=== PATIENT | female | born 1965 | race Caucasian/White ===

== ENCOUNTER 2016-06-03 17:22 | Emergency (ER) | payer OTHER ==
[~2016-06-03] VITALS: Ht 160 cm; Wt 94.3 kg
[~2016-06-03 17:22] MED LIST: 'PARAFON FORTE500 M1 PO; ACETAMINOPHEN-H1 TA2 PO; ASPIRIN CHEWABL81 M1 PO; AUGMENTIN 875875 MG PO; CIPRO500 MG PO; CLARITIN10 MG PO; CYCLOBENZAPRINE10 MG PO; DIFLUCAN150 MG PO; FENOFIBRIC ACI135 M1 PO; FLONASE ALLERG9.9 ML NAS; HYDR25T PO; HYDROCODONE BIT1 T11 PO; LEVOTHYROXINE0.15 MG PO; LEXAPRO20 MG PO; LISINOPRIL10 M1 PO; LISINOPRIL40 MG PO; LOPID600 M1 PO; MACROBID100 M1 PO; MEDROL DOSEPAK4 MG PO; METFORMIN HCL500 MG PO; METFORMIN500 MG PO; METOPROLOL SUCC25 M2 PO; MOTRIN800 MG PO; NEURONTIN100 MG PO; OS-CAL 500+D31 EACH PO; PEN-VEE K500 MG PO; PRAVASTATIN SOD40 MG PO; PREDNISONE10 MG PO; PREDNISONE20 M1 PO; PREDNISONE50 MG PO; PROVENTIL0.09 MG/A1 INH; ROBITUSSIN DM 105 ML PO; ROBITUSSIN5 ML PO; SEROQUEL50 MG PO; SYNTHROID0.125 MG PO; Synthroid,Lev100 MCG PO; ULTRAM50 MG PO; VENTOLIN H0.09 MG/AC INH; VIBRAMYCIN100 MG PO; ZESTRIL,PRINIVIL5 MG PO; ZESTRIL10 MG PO; ZESTRIL20 MG PO; ZITHROMAX250 MG PO; ZYRTEC10 MG PO
[2016-06-03] MEDS ORDERED: ZYRTEC10 MG PO (17:44)
[2016-06-03] MEDS ORDERED: AMOXICILLIN500 M2 PO (17:44)
== END 2016-06-03 17:49 | disposition home or self-care (01) ==
LOC: ED 17:22
DX: H66.91 Otitis media, unspecified, right ear (principal); J01.90 Acute sinusitis, unspecified; Z87.891 Personal history of nicotine dependence; Z88.1 Allergy status to other antibiotic agents; Z88.6 Allergy status to analgesic agent; Z90.49 Acquired absence of other specified parts of digestive tract

== ENCOUNTER 2016-06-24 17:03 | Emergency (ER) | payer OTHER ==
[~2016-06-24] VITALS: Ht 157.4 cm; Wt 99.8 kg
[~2016-06-24 17:03] MED LIST changes: +AMOXICILLIN500 M2 PO
[2016-06-24 17:41] LABS: BASO # 0.1 10*3/uL (0.0-0.1); BASO % 0.5 % (0.0-1.0); EOS # 0.3 10*3/uL (0.0-0.4); EOS % 2.9 % (1.0-4.0); HEMATOCRIT 38.7 % (37.0-47.0); HEMOGLOBIN 12.8 g/dl (12.0-16.0); IG # 0.1 10*3/uL (0.0-0.1); LYMPH # 3.2 10*3/uL (1.3-4.4); MEAN CELL VOLUME 81.6 fl (81.0-99.0); MEAN CORPUSCULAR HGB CONC 33.1 g/dl (33.0-37.0); MEAN PLATELET VOLUME 11.5 fl (9.6-12.3); MONO # 0.7 10*3/uL (0.1-1.0); MONO % 7.3 % (3.0-9.0); NEUT # 5.7 10*3/uL (2.3-7.9); NEUT % 56.1 % (47.0-73.0); PLATELET COUNT AUTOMATED 266 10*3/uL (130-400); RED BLOOD COUNT 4.74 10*6/uL (4.10-5.10); WHITE BLOOD COUNT 10.1 10*3/uL (4.8-10.8)
[2016-06-24 17:55] LABS: ALBUMIN 3.9 gm/dl (3.1-4.5); ALKALINE PHOSPHATASE 124 U/L (45-117); BILIRUBIN, TOTAL 0.5 mg/dl (0.2-1.0); BUN 15 mg/dl (7-24); CARBON DIOXIDE 30 mmol/L (21-32); CHLORIDE 104 mmol/L (98-107); EST GLOM FILT AFRICAN AMERICAN > 60 ml/min; GLUCOSE 201 mg/dL (65-99); SGOT/AST 22 IU/L (3-35); SGPT/ALT 34 U/L (12-78); SODIUM 144 mmol/L (136-145); TOTAL PROTEIN 7.4 gm/dL (6.4-8.2); URIC ACID 8.3 mg/dL (2.6-6.0)
[2016-06-24] MEDS ORDERED: INDOMETHACIN SR75 MG PO (18:31)
== END 2016-06-24 18:42 | disposition home or self-care (01) ==
LOC: ED 17:03
PROVIDERS: Emergency Medicine
DX: M13.872 Other specified arthritis, left ankle and foot (principal); J44.9 Chronic obstructive pulmonary disease, unspecified; F32.9 Major depressive disorder, single episode, unspecified; E11.40 Type 2 diabetes mellitus with diabetic neuropathy, unspecified; I10 Essential (primary) hypertension; K21.9 Gastro-esophageal reflux disease without esophagitis; E03.9 Hypothyroidism, unspecified; E78.2 Mixed hyperlipidemia; E66.9 Obesity, unspecified; Z68.39 Body mass index [BMI] 39.0-39.9, adult; Z90.710 Acquired absence of both cervix and uterus; Z90.49 Acquired absence of other specified parts of digestive tract; Z98.51 Tubal ligation status; Z79.899 Other long term (current) drug therapy; Z88.1 Allergy status to other antibiotic agents; Z88.5 Allergy status to narcotic agent; Z87.891 Personal history of nicotine dependence

== ENCOUNTER 2016-07-06 21:16 | Inpatient (IN) | payer OTHER ==
[~2016-07-06] VITALS: Ht 157.4 cm; Wt 94.1 kg
--- NOTE | ~2016-07-06 | WRIGHTHP ---
[place], [place] PATIENT HISTORY AND PHYSICAL EXAM NAME: TEREZA OROPEZA [facility] #: [id number] UNIT #: [id number] ROOM: 412 DOCTOR: BO LUNDY DO BIRTHDATE: [birth year] DOS: PRIMARY CARE PHYSICIAN: Dr. Sammi Ruff. The patient was seen and evaluated with the resident on 07/07/2016. Please see the resident's note for further details. ASSESSMENT: 1. Chest pain, rule out myocardial infarction. 2. Palpitations. 3. Mild leukocytosis. 4. Uncontrolled hypothyroidism, most likely secondary to noncompliance. 5. Diabetes mellitus type 2. 6. Hypertension. 7. Hyperlipidemia. 8. Chronic obstructive pulmonary disease. 9. Ex-smoker. She quit in December 2015. 10. Gastroesophageal reflux disease. 11. Depression. 12. 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 13. Negative cardiac stress test in January 2016. 14. Echocardiogram in September 2015 measured a normal ejection fraction. PLAN: Continue to monitor cardiac enzymes. Cardiology has been consulted. We will continue her at her normal dose of Synthroid since she is most likely not controlled because of noncompliance. Possible discharge today if okay with cardiology. A CTA of the chest has been ordered to rule out PE. BO LUNDY DO CM:HISPHYS:PATIENT HISTORY AND PHYSICAL EXAMINATION 1611 [id number] BO LUNDY DO 07/07/16 1637 interface
--- NOTE | ~2016-07-06 | PR ---
[place], [place] PROGRESS NOTE NAME: TEREZA OROPEZA [facility] #: [id number] UNIT #: [id number] ROOM: 412 DOCTOR: ANDREW BLAKE MD BIRTHDATE: [birth year] DOS: 07/09/2016 CARDIOLOGY PROGRESS NOTE SUBJECTIVE: The patient was seen in the cardiology division today, 07/09/2016 prior to a stress test. She is a 50-year-old woman who does have a history of an atrial septal defect that was repaired over 20 years ago. She has smoked up until about 8 months ago. She does have other risk factors of diabetes, hypertension, and hyperlipidemia. She states she has had intermittent pains in her chest for "quite a while," but they got worse recently, especially during an argument. She does note that her left breast area is tender to touch, but she states that her pains are deeper than that as well. Since she has been in the hospital, she feels a little bit better, but still has some of the chest discomfort. Cardiac biomarkers have been negative for an acute myocardial infarction. OBJECTIVE: VITAL SIGNS: Her pulse is 75 and regular, blood pressure is 144/86. She is afebrile. She weighs 94.1 kg and has a body mass index of 38. NECK: Supple. She has no jugular distention. Carotids are full. LUNGS: Respirations are unlabored. CHEST: Clear with decreased breath sounds bilaterally, but no wheezes or rales. Her heart has irregular rhythm. She has a fourth heart sound, but no third heart sound or murmur. The PMI is not displaced. She has no precordial heave, lift, or thrill. ABDOMEN: Soft and normally active without masses, organomegaly, or bruits. EXTREMITIES: Showed no edema. Peripheral pulses were palpable. DIAGNOSTIC DATA: Her electrocardiogram shows no acute changes. IMPRESSION: 1. Atypical chest pain. 2. History of repair of atrial septal defect. 3. Type 2 diabetes mellitus. 4. Hypertension. 5. Hyperlipidemia. 6. Obesity. 7. Long history of tobacco abuse. The patient abstinent for 8 months. PLAN: Thus far, her evaluation has been benign from a cardiac standpoint. We will do an echocardiogram and pharmacologic stress test. Further recommendations depend upon the results of those examinations. ____ and I thank the hospitalist group for asking our advice regarding the management of this patient. [place], [place] PROGRESS NOTE NAME: TEREZA OROPEZA UNIT #: [id number] ROOM: 412 DOCTOR: ANDREW BLAKE MD BIRTHDATE: [birth year] ANDREW BLAKE MD CM:PNTRANS [id number] [id number] ANDREW BLAKE MD 07/10/16 0633 interface
--- NOTE | ~2016-07-06 | ST ---
[place], [place] EXERCISE STRESS TEST REPORT NAME: TEREZA OROPEZA [facility] #: [id number] UNIT #: [id number] ROOM: 412 DOCTOR: ANDREW BLAKE MD BIRTHDATE: [birth year] DOS: 07/09/2016 PHARMACOLOGIC STRESS TEST INDICATIONS: Chest pain, dyspnea. PROCEDURE: The patient was given a rapid infusion of regadenoson 0.4 mg intravenously followed by a saline flush. She did have some headache and some dyspnea with the infusion but all this resolved spontaneously. Her resting electrocardiogram showed a rightward axis, but was otherwise normal. She also had left atrial enlargement. No ST-T wave changes occurred with the infusion. Her resting heart rate is 75 ludwig to 95, her resting blood pressure of 104/62 fell to 100/60. After the infusion of regadenoson, she was given radionuclide intravenously. IMPRESSION: 1. Well tolerated infusion of regadenoson. 2. Radionuclide administered. Please see the separate imaging report for further details of the patient's stress test results. ANDREW BLAKE MD CM:STRESS:EXERCISE STRESS TEST REPORT [id number] ANDREW BLAKE MD
--- NOTE | ~2016-07-06 | PR ---
[place], [place] PROGRESS NOTE [id number] #: [id number] ROOM: 412 DOCTOR: ANDREW BLAKE MD BIRTHDATE: [birth year] DOS: 07/10/2016 SUBJECTIVE: The patient was seen at her bedside, 07/10/2016, for followup of chest pain with multiple coronary risk factors. On 07/09/2016, she did undergo a pharmacologic stress test. This showed a moderate sized distal anteroapical reversible defect, but no fixed defect was seen. The study was consistent with mid LAD stenosis. Review of the records does show that she had a similar stress test in September 2015. This prompted catheterization at the [facility] on 09/07/2015. The study showed no coronary stenosis. PHYSICAL EXAMINATION: VITAL SIGNS: Today, her pulse is 80 and regular, blood pressure is 128/70. She is afebrile. She weighs 94.1 kilograms. NECK: Supple. She has no jugular distention. Carotids are full. LUNGS: Respirations are unlabored. Chest is clear to auscultation and percussion. HEART: Has a regular rhythm with an S4 gallop, but no S3. She does have chest wall tenderness. ABDOMEN: Soft and normoactive. EXTREMITIES: Showed no edema. LABORATORY DATA: Her electrocardiogram on admission showed no acute changes and serial troponin levels have been normal. IMPRESSION: 1. Noncardiac chest pain. Cardiac catheterization done 09/07/2015 showed normal left ventricular function and no coronary stenoses. 2. Multiple coronary risk factors including obesity, diabetes mellitus, hypertension, hyperlipidemia and former cigarette abuse. The patient stopped smoking 8 months ago. PLAN: I think we should be very aggressive about her risk factor modification. I did add beta blockers to her regimen to help treat her high blood pressure. She will require tight control of her diabetes and hyperlipidemia and encouragement to stay abstinent of cigarettes. From our perspective, she can be discharged to home and we will follow up with her in the office as needed. I thank the hospitalist physicians for asking our advice regarding her care. [place], [place] PROGRESS NOTE [facility]: [id number] UNIT #: [id number] ROOM: 412 DOCTOR: ANDREW BLAKE MD BIRTHDATE: [birth year] ANDREW BLAKE MD CM:PNHOLLY 2 ANDREW BLAKE MD 07/11/16223 interface
--- NOTE | ~2016-07-06 | CON ---
[place], [place] REPORT OF CONSULTATION NAME: TEREZA OROPEZA [facility] #: [id number] UNIT #: [id number] ROOM: 412 DOCTOR: THERESE DASZAIDAEVELYN BIRTHDATE: [birth year] DOS: REQUESTING PHYSICIAN: Dr. Beasley. REASON FOR CONSULTATION: Chest pain. ASSESSMENT: 1. Current presentation with chest pain, left-sided, for the past 2-3 days. 2. Diabetes. 3. Hypertension. 4. Hyperlipidemia. 5. Obesity with high probability of obstructive sleep apnea. 6. Long history of heavy tobacco abuse. The patient quit 8 months ago. 7. Previous history of large atrial septal defect with subsequent surgery for closure. PLAN: 1. Cycle cardiac enzymes. 2. Keep patient n.p.o. for a stress test in the a.m. 3. Check echo with a bubble study in the a.m. 4. Vital signs does not allow any advancement of her medication. 5. Consider CT scan of the chest in view of the significant reproducible nature of her chest pain. HISTORY AND PHYSICAL: The patient is a pleasant 50-year-old female unknown to our practice, was referred by Dr. Beasley for further evaluation of complaint of chest pain that apparently has been going for the past 2 to 3 days. Pain is left-sided, dull, aching, but it is reproducible with local pressure, it does though occasionally radiates to the left arm shoulder and again tingling in her fingers. This can last almost 20-30 minutes. Its goes back and forth mostly rest and it can reach 9/10. No associated nausea, vomiting, or diaphoresis, but again it does radiate to the left arm and cause tingling. The patient did not try to take any medicine for that presented to the hospital for now so far, along with that she was having some fluttering and racing of the heart also, some skipped beats. The patient never had such complaint before. She does not follow regular exercise program, but active, still drive and goes shopping. Sleeps on 2 pillows, which is her baseline with no reported PND, orthopnea or pedal edema. Never had any dizziness, lightheadedness, or near syncope. No fever, no chills, no night sweats. Maintaining good appetite with no significant weight change. PAST MEDICAL HISTORY: As detailed in my assessment. SOCIAL HISTORY: The patient quit smoking 8 months ago. Currently, she chewing gum about 2-3 packs a day. No heavy alcohol or illicit drug abuse. FAMILY HISTORY: The patient's mother is still alive at age 72. Her father at age 57 of unknown cause. She has 1 brother and 2 sisters with no reported early family history of heart disease. [place], [place] REPORT OF CONSULTATION NAME: TEREZA OROPEZA UNIT #: [id number] ROOM: [facility] DOCTOR: COREY SALEH MD BIRTHDATE: [birth year] CURRENT MEDICATIONS: Seroquel, Optiray, lisinopril, Lopid, Lovenox, Glucophage, Protonix, Synthroid, Restoril, Zofran, bisacodyl, Tylenol and Dulcolax. ALLERGIES: THE PATIENT IS ALLERGIC TO MORPHINE, ERYTHROMYCIN. REVIEW OF SYSTEMS: Currently, the patient denies any headache, diplopia, or blurry vision. She has significant double vision. No fever, no chills, no night sweats. No abdominal pain, no bright red blood per rectum, no tarry stools. Admit to occasional joint pain, but no muscular pain. No anxiety, no depression. No polyuria, no polydipsia, no skin rash. Review of all other systems has been negative. PHYSICAL EXAMINATION: GENERAL: The patient is alert, oriented x 3, quite pleasant. She is flat in bed, does not appear in distress. VITAL SIGNS: Blood pressure 114/62, heart rate 64, respiratory rate of 14, temperature 97.4. HEENT: Extraocular muscles intact. Pupils are equal, round, reactive to light. Conjunctivae: No pallor. Throat: No petechiae. NECK: Good upstroke. Unable to appreciate any bruit, no lymphadenopathy, no thyromegaly. HEART: S1, S2 with holosystolic murmur at the left sternal border. No rub. No sternal heave. CHEST AND BACK: No deformities. LUNGS: Clear to auscultation. Slight decrease in air movement. No wheezing, no rales. ABDOMEN: Morbidly obese, soft, nontender, present bowel sounds, no masses, no bruits. LOWER EXTREMITIES: There is mild ankle edema with faint distal pulses. NEUROLOGIC: Grossly nonfocal. SKIN: No significant rash. LABORATORY DATA: White count 10.4, hemoglobin 12.4. INR 0.9. CPK 68, MB is 0.6. Troponin less than 0.015. COREY SALEH MD CM:CONSTR:REPORT OF CONSULTATION 1104 07/08/16 1804 interface
[~2016-07-06 21:16] MED LIST changes: +INDOMETHACIN SR75 MG PO
[2016-07-06 21:24] VITALS: BP 183/74
[2016-07-06 21:48] LABS: BASO # 0.1 10*3/uL (0.0-0.1); BASO % 0.4 % (0.0-1.0); EOS # 0.3 10*3/uL (0.0-0.4); EOS % 2.4 % (1.0-4.0); HEMATOCRIT 37.9 % (37.0-47.0); HEMOGLOBIN 12.8 g/dl (12.0-16.0); IG # 0.1 10*3/uL (0.0-0.1); LYMPH # 3.9 10*3/uL (1.3-4.4); LYMPH % 32.7 % (27.0-41.0); MEAN CELL VOLUME 80.8 fl (81.0-99.0); MEAN CORPUSCULAR HGB 27.3 pg (27.0-31.0); MEAN CORPUSCULAR HGB CONC 33.8 g/dl (33.0-37.0); MEAN PLATELET VOLUME 12.1 fl (9.6-12.3); MONO # 0.7 10*3/uL (0.1-1.0); MONO % 6.3 % (3.0-9.0); NEUT # 6.8 10*3/uL (2.3-7.9); NEUT % 57.4 % (47.0-73.0); PLATELET COUNT AUTOMATED 255 10*3/uL (130-400); RED BLOOD COUNT 4.69 10*6/uL (4.10-5.10); RED CELL DISTRI WIDTH 14.2 % (0-14.5); WHITE BLOOD COUNT 11.8 10*3/uL (4.8-10.8)
[2016-07-06 21:58] LABS: INTERNATIONAL NORM RATIO 0.9 (2.0-3.5)
[2016-07-06 22:12] LABS: ALBUMIN 3.8 gm/dl (3.1-4.5); ALKALINE PHOSPHATASE 128 U/L (45-117); BILIRUBIN, TOTAL 0.4 mg/dl (0.2-1.0); BUN 17 mg/dl (7-24); CARBON DIOXIDE 25 mmol/L (21-32); CHLORIDE 105 mmol/L (98-107); EST GLOM FILT AFRICAN AMERICAN > 60 ml/min; GLUCOSE 148 mg/dL (65-99); MAGNESIUM 1.6 mg/dL (1.5-2.1); SGOT/AST 17 IU/L (3-35); SGPT/ALT 42 U/L (12-78); SODIUM 139 mmol/L (136-145); TOTAL PROTEIN 7.4 gm/dL (6.4-8.2)
[2016-07-06 22:28] LABS: TROPONIN I < 0.015 ng/ml (<0.045)
[2016-07-06 23:32] VITALS: BP 127/75
[2016-07-07] VITALS: BP 149/50
[2016-07-07 06:27] LABS: BASO # 0.1 10*3/uL (0.0-0.1); BASO % 0.6 % (0.0-1.0); EOS # 0.3 10*3/uL (0.0-0.4); EOS % 3.1 % (1.0-4.0); HEMATOCRIT 37.1 % (37.0-47.0); HEMOGLOBIN 12.4 g/dl (12.0-16.0); IG # 0.1 10*3/uL (0.0-0.1); LYMPH # 3.4 10*3/uL (1.3-4.4); MEAN CELL VOLUME 82.1 fl (81.0-99.0); MEAN CORPUSCULAR HGB 27.4 pg (27.0-31.0); MEAN CORPUSCULAR HGB CONC 33.4 g/dl (33.0-37.0); MONO # 0.7 10*3/uL (0.1-1.0); MONO % 6.7 % (3.0-9.0); NEUT # 5.9 10*3/uL (2.3-7.9); PLATELET COUNT AUTOMATED 239 10*3/uL (130-400); RED BLOOD COUNT 4.52 10*6/uL (4.10-5.10); RED CELL DISTRI WIDTH 14.3 % (0-14.5); WHITE BLOOD COUNT 10.4 10*3/uL (4.8-10.8)
[2016-07-07 06:39] LABS: CKMB 0.7 ng/ml (0.5-3.6); CPK 60 U/L (26-192)
[2016-07-07 06:46] LABS: TROPONIN I < 0.015 ng/ml (<0.045)
[2016-07-07 06:55] LABS: BUN 16 mg/dl (7-24); CARBON DIOXIDE 26 mmol/L (21-32); CHLORIDE 106 mmol/L (98-107); CHOLESTEROL 156 mg/dL (<200); EST GLOM FILT AFRICAN AMERICAN > 60 ml/min; GLUCOSE 159 mg/dL (65-99); HDL CHOLESTEROL 28 mg/dl (40-60); MAGNESIUM 1.9 mg/dL (1.5-2.1); PHOSPHOROUS 4.4 mg/dL (2.5-4.9); POTASSIUM 4.3 mmol/L (3.5-5.1); SODIUM 143 mmol/L (136-145); TRIGLYCERIDES 517 mg/dl (<150)
[2016-07-07 07:03] LABS: FREE T4 0.75 ng/dl (0.76-1.46)
[2016-07-07 07:04] LABS: HEMOGLOBIN A1c 7.2 % (4.8-5.6)
[2016-07-07 08:00] VITALS: BP 150/87
[2016-07-07 12:20] LABS: CKMB 0.7 ng/ml (0.5-3.6); CPK 62 U/L (26-192); TROPONIN I < 0.015 ng/ml (<0.045)
[2016-07-07 16:00] VITALS: BP 146/86
[2016-07-07 18:15] LABS: CKMB 0.6 ng/ml (0.5-3.6); CPK 68 U/L (26-192)
[2016-07-07 18:16] LABS: TROPONIN I < 0.015 ng/ml (<0.045)
[2016-07-07 20:00] VITALS: BP 133/72
[2016-07-08] VITALS: BP 112/57
[2016-07-08 08:00] VITALS: BP 114/62
[2016-07-08 12:00] VITALS: BP 101/54
[2016-07-08 16:00] VITALS: BP 94/50
[2016-07-08 20:00] VITALS: BP 108/67
[2016-07-09] VITALS: BP 111/49
[2016-07-09 08:00] VITALS: BP 144/86
[2016-07-09 16:00] VITALS: BP 115/64
[2016-07-09 20:00] VITALS: BP 134/78
[2016-07-10] VITALS: BP 105/46
[2016-07-10 07:34] LABS: BASO # 0.1 10*3/uL (0.0-0.1); BASO % 0.6 % (0.0-1.0); EOS # 0.3 10*3/uL (0.0-0.4); EOS % 2.8 % (1.0-4.0); HEMATOCRIT 37.2 % (37.0-47.0); HEMOGLOBIN 12.2 g/dl (12.0-16.0); IG # 0.1 10*3/uL (0.0-0.1); LYMPH # 3.3 10*3/uL (1.3-4.4); LYMPH % 36.1 % (27.0-41.0); MEAN CELL VOLUME 83.4 fl (81.0-99.0); MEAN CORPUSCULAR HGB 27.4 pg (27.0-31.0); MEAN CORPUSCULAR HGB CONC 32.8 g/dl (33.0-37.0); MEAN PLATELET VOLUME 11.9 fl (9.6-12.3); MONO # 0.8 10*3/uL (0.1-1.0); MONO % 8.3 % (3.0-9.0); NEUT # 4.6 10*3/uL (2.3-7.9); NEUT % 50.9 % (47.0-73.0); PLATELET COUNT AUTOMATED 256 10*3/uL (130-400); RED BLOOD COUNT 4.46 10*6/uL (4.10-5.10); RED CELL DISTRI WIDTH 14.5 % (0-14.5); WHITE BLOOD COUNT 9.1 10*3/uL (4.8-10.8)
[2016-07-10 07:36] LABS: EST GLOM FILT AFRICAN AMERICAN > 60 ml/min
[2016-07-10 08:00] VITALS: BP 128/70
[2016-07-10 12:00] VITALS: BP 149/70
[2016-07-10] MEDS ORDERED: D-1000 185 MG-11 TAB PO (13:54)
[2016-07-10] MEDS ORDERED: METOPROLOL SUCC25 M2 PO (13:54)
== END 2016-07-10 16:12 | disposition home or self-care (01) | DRG 880 ==
LOC: ED 21:16 → EDHOLD 23:04 → 4E 23:04
PROVIDERS: Emergency Medicine; Student in an Organized Health Care Education/Training Program
PROC: 4A02XM4 Measurement of Cardiac Total Activity, External Approach (ICD-10-PCS; principal; 2016-07-09)
PROC: 3E073KZ Introduction of Other Diagnostic Substance into Coronary Artery, Percutaneous Approach (ICD-10-PCS; 2016-07-09)
DX: F41.9 Anxiety disorder, unspecified (principal); I50.32 Chronic diastolic (congestive) heart failure; E11.40 Type 2 diabetes mellitus with diabetic neuropathy, unspecified; I11.0 Hypertensive heart disease with heart failure; E11.65 Type 2 diabetes mellitus with hyperglycemia; R00.1 Bradycardia, unspecified; K21.9 Gastro-esophageal reflux disease without esophagitis; J44.9 Chronic obstructive pulmonary disease, unspecified; F32.9 Major depressive disorder, single episode, unspecified; E78.2 Mixed hyperlipidemia; E66.9 Obesity, unspecified; E03.9 Hypothyroidism, unspecified; D72.829 Elevated white blood cell count, unspecified; Z87.891 Personal history of nicotine dependence; Z91.14 Patient's other noncompliance with medication regimen; Z90.49 Acquired absence of other specified parts of digestive tract; Z90.710 Acquired absence of both cervix and uterus; Z98.51 Tubal ligation status; Z83.6 Family history of other diseases of the respiratory system; Z88.1 Allergy status to other antibiotic agents; Z88.6 Allergy status to analgesic agent; Z79.84 Long term (current) use of oral hypoglycemic drugs; Z88.8 Allergy status to other drugs, medicaments and biological substances; Z68.38 Body mass index [BMI] 38.0-38.9, adult; R00.8 Other abnormalities of heart beat

== ENCOUNTER 2016-07-29 19:07 | Inpatient (IN) | payer OTHER ==
[~2016-07-29] VITALS: Ht 157.4 cm; Wt 93.0 kg
[2016-07-29 19:07] VITALS: BP 132/88
[~2016-07-29 19:07] MED LIST changes: +D-1000 185 MG-11 TAB PO
[2016-07-29 19:50] LABS: BASO % 0.3 % (0.0-1.0); EOS # 0.3 10*3/uL (0.0-0.4); EOS % 2.3 % (1.0-4.0); HEMATOCRIT 37.7 % (37.0-47.0); HEMOGLOBIN 12.4 g/dl (12.0-16.0); IG # 0.1 10*3/uL (0.0-0.1); LYMPH # 3.9 10*3/uL (1.3-4.4); LYMPH % 30.6 % (27.0-41.0); MEAN CELL VOLUME 82.9 fl (81.0-99.0); MEAN CORPUSCULAR HGB 27.3 pg (27.0-31.0); MEAN CORPUSCULAR HGB CONC 32.9 g/dl (33.0-37.0); MONO % 7.6 % (3.0-9.0); NEUT # 7.4 10*3/uL (2.3-7.9); NEUT % 58.2 % (47.0-73.0); PLATELET COUNT AUTOMATED 255 10*3/uL (130-400); RED BLOOD COUNT 4.55 10*6/uL (4.10-5.10); RED CELL DISTRI WIDTH 14.5 % (0-14.5); WHITE BLOOD COUNT 12.6 10*3/uL (4.8-10.8)
[2016-07-29 19:54] VITALS: BP 116/76
[2016-07-29 20:03] LABS: INTERNATIONAL NORM RATIO 0.9 (2.0-3.5)
[2016-07-29 20:08] LABS: ALBUMIN 3.7 gm/dl (3.1-4.5); ALKALINE PHOSPHATASE 138 U/L (45-117); BILIRUBIN, TOTAL 0.8 mg/dl (0.2-1.0); BUN 18 mg/dl (7-24); CARBON DIOXIDE 28 mmol/L (21-32); CHLORIDE 101 mmol/L (98-107); EST GLOM FILT AFRICAN AMERICAN > 60 ml/min; GLUCOSE 227 mg/dL (65-99); MAGNESIUM 1.6 mg/dL (1.5-2.1); SGOT/AST 34 IU/L (3-35); SGPT/ALT 39 U/L (12-78); SODIUM 137 mmol/L (136-145); TOTAL PROTEIN 7.3 gm/dL (6.4-8.2)
[2016-07-29 20:09] LABS: TROPONIN I < 0.015 ng/ml (<0.045)
[2016-07-29 21:11] VITALS: BP 106/60
[2016-07-29 22:40] VITALS: BP 142/84
[2016-07-29 23:15] VITALS: BP 110/60; BP 118/82
[2016-07-30 06:42] LABS: BASO % 0.3 % (0.0-1.0); EOS # 0.2 10*3/uL (0.0-0.4); EOS % 2.6 % (1.0-4.0); HEMATOCRIT 36.7 % (37.0-47.0); HEMOGLOBIN 12.1 g/dl (12.0-16.0); IG # 0.1 10*3/uL (0.0-0.1); LYMPH # 3.8 10*3/uL (1.3-4.4); LYMPH % 41.7 % (27.0-41.0); MEAN CELL VOLUME 83.4 fl (81.0-99.0); MEAN CORPUSCULAR HGB 27.5 pg (27.0-31.0); MEAN PLATELET VOLUME 12.1 fl (9.6-12.3); MONO # 0.8 10*3/uL (0.1-1.0); MONO % 8.3 % (3.0-9.0); NEUT # 4.2 10*3/uL (2.3-7.9); NEUT % 46.3 % (47.0-73.0); PLATELET COUNT AUTOMATED 225 10*3/uL (130-400); RED CELL DISTRI WIDTH 14.5 % (0-14.5); WHITE BLOOD COUNT 9.1 10*3/uL (4.8-10.8)
[2016-07-30 07:15] LABS: ALBUMIN 3.4 gm/dl (3.1-4.5); BUN 17 mg/dl (7-24); CARBON DIOXIDE 26 mmol/L (21-32); CHLORIDE 106 mmol/L (98-107); EST GLOM FILT AFRICAN AMERICAN > 60 ml/min; GLUCOSE 197 mg/dL (65-99); MAGNESIUM 1.8 mg/dL (1.5-2.1); POTASSIUM 4.1 mmol/L (3.5-5.1); SODIUM 141 mmol/L (136-145)
[2016-07-30 07:26] LABS: ALKALINE PHOSPHATASE 122 U/L (45-117); BILIRUBIN, TOTAL 0.7 mg/dl (0.2-1.0); FREE T4 0.89 ng/dl (0.76-1.46); SGOT/AST 24 IU/L (3-35); SGPT/ALT 33 U/L (12-78); TOTAL PROTEIN 6.6 gm/dL (6.4-8.2)
[2016-07-30 08:00] VITALS: BP 98/56
[2016-07-30 12:00] VITALS: BP 105/72
[2016-07-30 16:00] VITALS: BP 114/66
[2016-07-30] MEDS ORDERED: LIPITOR10 MG PO (16:55)
[2016-07-30] MEDS ORDERED: FISH OIL EC 1,1 EACH PO (16:55)
== END 2016-07-30 18:29 | disposition home or self-care (01) | DRG 313 ==
LOC: ED 19:07 → EDHOLD 22:15 → 4E 22:41
PROVIDERS: Emergency Medicine Emergency Medical Services; Internal Medicine Hospice and Palliative Medicine
DX: R07.89 Other chest pain (principal); N17.0 Acute kidney failure with tubular necrosis; I50.32 Chronic diastolic (congestive) heart failure; Z68.41 Body mass index [BMI] 40.0-44.9, adult; M54.12 Radiculopathy, cervical region; F32.9 Major depressive disorder, single episode, unspecified; J44.9 Chronic obstructive pulmonary disease, unspecified; K21.9 Gastro-esophageal reflux disease without esophagitis; E03.9 Hypothyroidism, unspecified; E78.2 Mixed hyperlipidemia; D72.829 Elevated white blood cell count, unspecified; E11.65 Type 2 diabetes mellitus with hyperglycemia; E11.42 Type 2 diabetes mellitus with diabetic polyneuropathy; I11.0 Hypertensive heart disease with heart failure; E66.01 Morbid (severe) obesity due to excess calories; E55.9 Vitamin D deficiency, unspecified; B34.9 Viral infection, unspecified; F41.9 Anxiety disorder, unspecified; Z90.710 Acquired absence of both cervix and uterus; Z90.49 Acquired absence of other specified parts of digestive tract; Z98.51 Tubal ligation status; Z87.891 Personal history of nicotine dependence; Z82.5 Family history of asthma and other chronic lower respiratory diseases; Z88.1 Allergy status to other antibiotic agents; Z88.6 Allergy status to analgesic agent; Z79.84 Long term (current) use of oral hypoglycemic drugs; Z79.899 Other long term (current) drug therapy; R00.8 Other abnormalities of heart beat

== ENCOUNTER → 2016-08-07 | Outpatient (CLI) | payer OTHER ==
[~2016-08-07] MED LIST changes: +FISH OIL EC 1,1 EACH PO; +LIPITOR10 MG PO
== END | disposition home or self-care (01) ==
LOC: MAMMO 07-27 13:30
DX: Z12.31 Encounter for screening mammogram for malignant neoplasm of breast (principal)

== ENCOUNTER 2016-09-08 21:01 | Emergency (ER) | payer OTHER ==
[~2016-09-08] VITALS: Ht 160 cm; Wt 97.1 kg
[2016-09-08 21:56] LABS: BILIRUBIN NEGATIVE (NEGATIVE); BLOOD NEGATIVE (NEGATIVE); CLARITY CLEAR (CLEAR); COLOR YELLOW (YELLOW); GLUCOSE NEGATIVE (NEGATIVE); KETONE NEGATIVE (NEGATIVE); LEUKO ESTERASE NEGATIVE (NEGATIVE); NITRITE NEGATIVE (NEGATIVE); PROTEIN NEGATIVE (NEGATIVE); SPECIFIC GRAVITY 1.025 (1.005-1.030); UROBILINOGEN 0.2 E.U./dl (0.2-1.0)
[2016-09-08 21:59] LABS: BASO # 0.1 10*3/uL (0.0-0.1); BASO % 0.4 % (0.0-1.0); EOS # 0.3 10*3/uL (0.0-0.4); EOS % 1.7 % (1.0-4.0); HEMATOCRIT 39.8 % (37.0-47.0); HEMOGLOBIN 13.4 g/dl (12.0-16.0); IG # 0.2 10*3/uL (0.0-0.1); LYMPH # 3.8 10*3/uL (1.3-4.4); LYMPH % 25.5 % (27.0-41.0); MEAN CELL VOLUME 80.7 fl (81.0-99.0); MEAN CORPUSCULAR HGB 27.2 pg (27.0-31.0); MEAN CORPUSCULAR HGB CONC 33.7 g/dl (33.0-37.0); MEAN PLATELET VOLUME 11.8 fl (9.6-12.3); MONO % 6.3 % (3.0-9.0); NEUT # 9.8 10*3/uL (2.3-7.9); NEUT % 64.9 % (47.0-73.0); PLATELET COUNT AUTOMATED 292 10*3/uL (130-400); RED BLOOD COUNT 4.93 10*6/uL (4.10-5.10); RED CELL DISTRI WIDTH 13.8 % (0-14.5)
[2016-09-08 22:06] LABS: BACTERIA TRACE
[2016-09-08 22:14] LABS: ALBUMIN 3.8 gm/dl (3.1-4.5); ALKALINE PHOSPHATASE 163 U/L (45-117); BILIRUBIN, TOTAL 0.6 mg/dl (0.2-1.0); BUN 22 mg/dl (7-24); CARBON DIOXIDE 23 mmol/L (21-32); CHLORIDE 103 mmol/L (98-107); EST GLOM FILT AFRICAN AMERICAN > 60 ml/min; GLUCOSE 220 mg/dL (65-99); SGOT/AST 45 IU/L (3-35); SGPT/ALT 64 U/L (12-78); SODIUM 138 mmol/L (136-145); TOTAL PROTEIN 7.5 gm/dL (6.4-8.2)
[2016-09-08] MEDS ORDERED: BACTRIM DS 8001 TA1 PO (22:57)
[2016-09-08] MEDS ORDERED: PYRIDIUM200 M1 PO (22:57)
== END 2016-09-08 23:13 | disposition home or self-care (01) ==
LOC: ED 21:01
PROVIDERS: Nurse Practitioner Family
DX: R30.0 Dysuria (principal); R39.15 Urgency of urination; R35.0 Frequency of micturition; R30.9 Painful micturition, unspecified; L29.2 Pruritus vulvae; R10.31 Right lower quadrant pain; R10.32 Left lower quadrant pain; F17.200 Nicotine dependence, unspecified, uncomplicated; N89.8 Other specified noninflammatory disorders of vagina; Z88.1 Allergy status to other antibiotic agents; Z88.6 Allergy status to analgesic agent; Z79.899 Other long term (current) drug therapy

== ENCOUNTER 2016-09-14 15:08 | Emergency (ER) | payer OTHER ==
[~2016-09-14] VITALS: Ht 157.4 cm; Wt 95.3 kg
[~2016-09-14 15:08] MED LIST changes: +BACTRIM DS 8001 TA1 PO; +PYRIDIUM200 M1 PO
[2016-09-14 15:56] LABS: BILIRUBIN NEGATIVE (NEGATIVE); BLOOD NEGATIVE (NEGATIVE); CLARITY CLEAR (CLEAR); COLOR YELLOW (YELLOW); GLUCOSE NEGATIVE (NEGATIVE); KETONE NEGATIVE (NEGATIVE); LEUKO ESTERASE NEGATIVE (NEGATIVE); NITRITE POSITIVE (NEGATIVE); PROTEIN NEGATIVE (NEGATIVE); SPECIFIC GRAVITY <= 1.005 (1.005-1.030); UROBILINOGEN 0.2 E.U./dl (0.2-1.0)
[2016-09-14 16:04] LABS: BACTERIA TRACE; URINE REFLEX COMMENT YES (NO)
[2016-09-14 16:05] LABS: RBC 0-2 rbc/hpf (0-2); WBC 0-2 wbc/hpf (0-5)
== END 2016-09-14 16:32 | disposition home or self-care (01) ==
LOC: ED 15:08
PROVIDERS: Nurse Practitioner Family
DX: N39.0 Urinary tract infection, site not specified (principal); I11.0 Hypertensive heart disease with heart failure; I50.30 Unspecified diastolic (congestive) heart failure; E03.9 Hypothyroidism, unspecified; E78.2 Mixed hyperlipidemia; E11.40 Type 2 diabetes mellitus with diabetic neuropathy, unspecified; J44.9 Chronic obstructive pulmonary disease, unspecified; K21.9 Gastro-esophageal reflux disease without esophagitis; Z88.1 Allergy status to other antibiotic agents; Z88.6 Allergy status to analgesic agent; Z79.899 Other long term (current) drug therapy

== ENCOUNTER 2016-09-22 18:26 | Inpatient (IN) | payer OTHER ==
[~2016-09-22] VITALS: Ht 157.5 cm; Wt 96.2 kg
--- NOTE | ~2016-09-22 | CON ---
[place], [place] REPORT OF CONSULTATION NAME: TEREZA OROPEZA [facility] #: [id number] UNIT #: [id number] ROOM: 508 DOCTOR: COREY SALEH MD BIRTHDATE: [birth year] DOS: 09/23/2016 REQUESTING PHYSICIAN: Chato. REASON FOR CONSULTATION: Chest pain. ASSESSMENT: 1. Current presentation with complaint of chest pain. 2. Symptomatic palpitation. 3. Diabetes. 4. Hypertension. 5. Hyperlipidemia. 6. Evidence of neuropathy. 7. Questionable history of mitral valve disease. 8. Status post ASD repair in 1995 with normal catheterization prior to that. 9. Previous history of tobacco abuse. 10. Obesity with high probability of obstructive sleep apnea. 11. Early family history of heart disease. PLAN: 1. Cycle cardiac enzymes. 2. Check thyroid function test. 3. Proceed with echocardiogram and bubble study in a.m. 4. N.p.o. after midnight for a Lexiscan stress test in a.m. 5. No option for beta parris in view the patient baseline bradycardia. HISTORY AND PHYSICAL: The patient is a pleasant 51-year--old female unknown to our practice, was referred by Dr. Reis for further evaluation of complaint of chest pain. Apparently, the patient goes for water aerobics and was swimming yesterday. Following that she started having complaint of chest pain that is bilateral underneath her breast. It converts in the middle. It did reach almost 8/10. The patient ____ she is going to cry and pass out. This lasted about 10 minutes. This was waxing and waning throughout the day. The patient finally presented to the Emergency Room. No nitroglycerin was given to the patient. The patient never had such complaint in the past. She is morbidly obese with limited functional capacity, but still able to go for water aerobic. The patient also has been complaining of off and on symptomatic palpitation that is described as a racing heart beats and occasional fluttering of the heart. It can last up to an hour. It is also associated with dizziness, lightheadedness, and also near syncope. Sleeps on 1-2 pillows with no reported PND, orthopnea or pedal edema. The patient denies any fever, chills or night sweats, maintained good appetite, no weight loss. Snoring is reported. Functional capacity is limited due to body habitus and it appears to be [place] [employer] around 2-3. PAST MEDICAL HISTORY: As detailed in my assessment. SOCIAL HISTORY: The patient quit smoking 10 months ago. She smokes since 2001. She is a social drinker, never used drugs. [place], [place] REPORT OF CONSULTATION [facility]: [id number] #: [id number] ROOM: 508 DOCTOR: COREY SALEH MD BIRTHDATE: [birth year] FAMILY HISTORY: The patient's father suddenly at age 57. She has two sisters and one brother with no heart problems. CURRENT MEDICATIONS: Synthroid, Pepcid, Lipitor, insulin, vitamin D, Claritin, fish oil, Tricor, Pepcid, Lovenox, Zyrtec, Tylenol, and aspirin. ALLERGIES: THE PATIENT IS ALLERGIC TO MORPHINE AND ERYTHROMYCIN. REVIEW OF SYSTEMS: Currently, the patient denies any headache, diplopia or blurry vision. No fever, no chills, no night sweats. No abdominal pain, no bright blood per rectum, no tarry stools. The patient admits to joint pain, but no muscular pain. No anxiety, no depression. No polyuria, no polydipsia, no skin rash. Review of all other systems has been negative. PHYSICAL EXAMINATION: GENERAL: The patient is alert, oriented x3, quite pleasant, sitting up in bed, does not appear in any distress. VITAL SIGNS: Blood pressure 115/54, heart rate 62, respiratory rate of 18, temperature 97.8. HEENT: Extraocular muscles intact. Pupils equal, round, reactive to light. Conjunctivae: No pallor. Throat: No petechiae. NECK: Good carotid upstroke. Unable to appreciate any bruit, no lymphadenopathy, no thyromegaly. HEART: S1, S2 with faint holosystolic murmur at left upper sternal border. No rub, no retrosternal heave. CHEST AND BACK: No deformities. LUNGS: Decreased air movement, but no arelis wheezing or rales. ABDOMEN: Morbidly obese, soft, nontender. Present bowel sounds. No masses, no bruits. EXTREMITIES: Lower extremities, no edema with good distal pulses. NEUROLOGIC: Grossly nonfocal. SKIN: No significant rash. DIAGNOSTIC DATA: Electrocardiogram showing normal sinus rhythm with frequent PACs. There is poor R progression and nonspecific ST-T changes. LABORATORY DATA: White count 8.3, hemoglobin 12.6. Potassium 4.1. GFR more than 60%, slightly elevated ALT and AST. Triglyceride 1723, cholesterol 195, LDL was not measured, HDL 17. TSH 5.7. [place], [place] REPORT OF CONSULTATION NAME: [facility]ANDIPTEREZA [facility]anna [facility]: [id number] #: [id number] ROOM: 508 DOCTOR: COREY SALEH MD BIRTHDATE: [birth year] COREY SALEH MD CM:CONSTR:REPORT OF CONSULTATION 1121 09/23/16 1149 interface
--- NOTE | ~2016-09-22 | ST ---
[place], [place] EXERCISE STRESS TEST REPORT NAME: TEREZA OROPEZA [facility] #: [id number] UNIT #: [id number] ROOM: 508 DOCTOR: FERMIN CORONADO MD BIRTHDATE: [birth year] DOS: 09/24/2016 LEXISCAN STRESS EKG REFERRING PHYSICIAN: Dr. Reis. INDICATION: Anterior chest pain. The patient underwent standard protocol Lexiscan stress EKG. Baseline EKG has normal sinus with nonspecific ST-T wave changes. Heart rate 85, blood pressure 120/64, peak heart rate was 124 with a blood pressure 190/80. The patient had no chest pain, no arrhythmias, no EKG changes. SUMMARY OF FINDINGS: Unremarkable Lexiscan stress EKG. Please see separate report for perfusion scan results. FERMIN CORONADO MD CM:STRESS:EXERCISE STRESS TEST REPORT [id number] FERMIN CORONADO MD
[2016-09-22 18:40] VITALS: BP 156/79
[2016-09-22 19:06] LABS: BASO % 0.4 % (0.0-1.0); EOS # 0.3 10*3/uL (0.0-0.4); EOS % 2.9 % (1.0-4.0); HEMATOCRIT 38.9 % (37.0-47.0); IG # 0.1 10*3/uL (0.0-0.1); LYMPH # 2.9 10*3/uL (1.3-4.4); LYMPH % 29.7 % (27.0-41.0); MEAN CELL VOLUME 81.2 fl (81.0-99.0); MEAN CORPUSCULAR HGB 27.1 pg (27.0-31.0); MEAN CORPUSCULAR HGB CONC 33.4 g/dl (33.0-37.0); MEAN PLATELET VOLUME 11.8 fl (9.6-12.3); MONO # 0.7 10*3/uL (0.1-1.0); MONO % 7.6 % (3.0-9.0); NEUT # 5.7 10*3/uL (2.3-7.9); NEUT % 58.7 % (47.0-73.0); PLATELET COUNT AUTOMATED 237 10*3/uL (130-400); RED BLOOD COUNT 4.79 10*6/uL (4.10-5.10); RED CELL DISTRI WIDTH 13.8 % (0-14.5); WHITE BLOOD COUNT 9.7 10*3/uL (4.8-10.8)
[2016-09-22 19:16] LABS: INTERNATIONAL NORM RATIO 0.9 (2.0-3.5); PROTHROMBIN TIME 9.8 SECONDS (9.0-12.4)
[2016-09-22 19:22] LABS: ALBUMIN 3.4 gm/dl (3.1-4.5); ALKALINE PHOSPHATASE 183 U/L (45-117); BILIRUBIN, TOTAL 0.5 mg/dl (0.2-1.0); BUN 15 mg/dl (7-24); CARBON DIOXIDE 28 mmol/L (21-32); CHLORIDE 102 mmol/L (98-107); EST GLOM FILT AFRICAN AMERICAN > 60 ml/min; GLUCOSE 242 mg/dL (65-99); MAGNESIUM 1.6 mg/dL (1.5-2.1); POTASSIUM 4.3 mmol/L (3.5-5.1); SGOT/AST 62 IU/L (3-35); SODIUM 139 mmol/L (136-145); TOTAL PROTEIN 7.1 gm/dL (6.4-8.2)
[2016-09-22 19:24] LABS: TROPONIN I < 0.015 ng/ml (<0.045)
[2016-09-22 19:31] LABS: SGPT/ALT 85 U/L (12-78)
[2016-09-22 20:30] VITALS: BP 143/67
[2016-09-22] MEDS ORDERED: SYNTHROID,LEV175 MCG PO (21:52)
[2016-09-22] MEDS ORDERED: FENOFIBRATE160 MG PO (21:56)
[2016-09-22] MEDS ORDERED: CLARITIN10 MG PO (22:01)
[2016-09-22] MEDS ORDERED: ZANTAC 150150 MG PO (22:02)
[2016-09-22] MEDS ORDERED: FAMOTIDINE20 M1 PO (22:03)
[2016-09-22] MEDS ORDERED: CETIRIZINE10 MG PO (22:04)
[2016-09-23] VITALS: BP 115/54
[2016-09-23 06:16] LABS: BASO % 0.5 % (0.0-1.0); EOS # 0.3 10*3/uL (0.0-0.4); EOS % 3.1 % (1.0-4.0); HEMATOCRIT 38.2 % (37.0-47.0); HEMOGLOBIN 12.6 g/dl (12.0-16.0); IG # 0.1 10*3/uL (0.0-0.1); LYMPH # 2.9 10*3/uL (1.3-4.4); LYMPH % 34.9 % (27.0-41.0); MEAN CELL VOLUME 82.3 fl (81.0-99.0); MEAN CORPUSCULAR HGB 27.2 pg (27.0-31.0); MEAN PLATELET VOLUME 11.8 fl (9.6-12.3); MONO # 0.6 10*3/uL (0.1-1.0); MONO % 7.6 % (3.0-9.0); NEUT # 4.4 10*3/uL (2.3-7.9); NEUT % 52.9 % (47.0-73.0); PLATELET COUNT AUTOMATED 225 10*3/uL (130-400); RED BLOOD COUNT 4.64 10*6/uL (4.10-5.10); RED CELL DISTRI WIDTH 13.9 % (0-14.5); WHITE BLOOD COUNT 8.3 10*3/uL (4.8-10.8)
[2016-09-23 06:29] LABS: HEMOGLOBIN A1c 8.5 % (4.8-5.6)
[2016-09-23 06:50] LABS: BILIRUBIN, TOTAL 0.6 mg/dl (0.2-1.0); BUN 15 mg/dl (7-24); CARBON DIOXIDE 19 mmol/L (21-32); CHLORIDE 102 mmol/L (98-107); CHOLESTEROL 195 mg/dL (<200); EST GLOM FILT AFRICAN AMERICAN > 60 ml/min; GLUCOSE 254 mg/dL (65-99); MAGNESIUM 1.7 mg/dL (1.5-2.1); PHOSPHOROUS 3.6 mg/dL (2.5-4.9); POTASSIUM 4.1 mmol/L (3.5-5.1); SODIUM 139 mmol/L (136-145)
[2016-09-23 06:54] LABS: INTERNATIONAL NORM RATIO 0.9 (2.0-3.5); PROTHROMBIN TIME 9.6 SECONDS (9.0-12.4)
[2016-09-23 06:58] LABS: FOLIC ACID 14.18 ng/mL (>5.38); VITAMIN D, 25-HYDROXY 17.6 ng/mL (30-100)
[2016-09-23 08:09] LABS: ALKALINE PHOSPHATASE 84 U/L (45-117); HDL CHOLESTEROL 17 mg/dl (40-60); SGOT/AST 63 IU/L (3-35); SGPT/ALT 84 U/L (12-78); TOTAL PROTEIN 6.9 gm/dL (6.4-8.2); TRIGLYCERIDES 1723 mg/dl (<150)
[2016-09-23 12:00] VITALS: BP 146/75
[2016-09-23 16:00] VITALS: BP 116/44
[2016-09-23 20:00] VITALS: BP 131/56
[2016-09-24] VITALS: BP 130/71
[2016-09-24 06:09] LABS: BASO % 0.5 % (0.0-1.0); EOS # 0.2 10*3/uL (0.0-0.4); EOS % 2.3 % (1.0-4.0); HEMATOCRIT 37.7 % (37.0-47.0); HEMOGLOBIN 12.8 g/dl (12.0-16.0); IG # 0.1 10*3/uL (0.0-0.1); LYMPH # 2.2 10*3/uL (1.3-4.4); LYMPH % 28.9 % (27.0-41.0); MEAN CELL VOLUME 81.6 fl (81.0-99.0); MEAN CORPUSCULAR HGB 27.7 pg (27.0-31.0); MEAN PLATELET VOLUME 11.8 fl (9.6-12.3); MONO # 0.5 10*3/uL (0.1-1.0); MONO % 6.4 % (3.0-9.0); NEUT # 4.6 10*3/uL (2.3-7.9); NEUT % 61.1 % (47.0-73.0); PLATELET COUNT AUTOMATED 204 10*3/uL (130-400); RED BLOOD COUNT 4.62 10*6/uL (4.10-5.10); RED CELL DISTRI WIDTH 13.6 % (0-14.5); WHITE BLOOD COUNT 7.5 10*3/uL (4.8-10.8)
[2016-09-24 06:26] LABS: BUN 11 mg/dl (7-24); CARBON DIOXIDE 22 mmol/L (21-32); CHLORIDE 100 mmol/L (98-107); EST GLOM FILT AFRICAN AMERICAN > 60 ml/min; GLUCOSE 269 mg/dL (65-99); POTASSIUM 4.2 mmol/L (3.5-5.1); SODIUM 139 mmol/L (136-145)
[2016-09-24 08:00] VITALS: BP 120/80
[2016-09-24 16:00] VITALS: BP 142/69
[2016-09-24] MEDS ORDERED: METFORMIN1000 MG PO (17:59)
[2016-09-24] MEDS ORDERED: LISINOPRIL20 MG PO (17:59)
== END 2016-09-24 19:00 | disposition home or self-care (01) | DRG 392 ==
LOC: ED 18:26 → EDHOLD 19:57 → 5E 19:57
PROVIDERS: Emergency Medicine; Hospitalist; Internal Medicine
PROC: 4A02XM4 Measurement of Cardiac Total Activity, External Approach (ICD-10-PCS; principal; 2016-09-24)
PROC: 3E073KZ Introduction of Other Diagnostic Substance into Coronary Artery, Percutaneous Approach (ICD-10-PCS; 2016-09-24)
DX: K21.9 Gastro-esophageal reflux disease without esophagitis (principal); E11.40 Type 2 diabetes mellitus with diabetic neuropathy, unspecified; E44.0 Moderate protein-calorie malnutrition; I50.32 Chronic diastolic (congestive) heart failure; I11.0 Hypertensive heart disease with heart failure; R09.1 Pleurisy; E11.65 Type 2 diabetes mellitus with hyperglycemia; J44.9 Chronic obstructive pulmonary disease, unspecified; M54.12 Radiculopathy, cervical region; G47.33 Obstructive sleep apnea (adult) (pediatric); F41.9 Anxiety disorder, unspecified; R07.89 Other chest pain; R74.0 Nonspecific elevation of levels of transaminase and lactic acid dehydrogenase [LDH]; E66.01 Morbid (severe) obesity due to excess calories; E78.2 Mixed hyperlipidemia; E55.9 Vitamin D deficiency, unspecified; E78.1 Pure hyperglyceridemia; F32.9 Major depressive disorder, single episode, unspecified; E03.9 Hypothyroidism, unspecified; Z90.710 Acquired absence of both cervix and uterus; Z68.39 Body mass index [BMI] 39.0-39.9, adult; Z87.891 Personal history of nicotine dependence; Z90.49 Acquired absence of other specified parts of digestive tract; Z98.51 Tubal ligation status; Z84.89 Family history of other specified conditions; Z88.1 Allergy status to other antibiotic agents; Z88.6 Allergy status to analgesic agent; Z79.84 Long term (current) use of oral hypoglycemic drugs; Z79.899 Other long term (current) drug therapy; Z91.14 Patient's other noncompliance with medication regimen

== ENCOUNTER 2016-09-30 03:39 | Emergency (ER) | payer OTHER ==
[~2016-09-30] VITALS: Ht 177.8 cm; Wt 97.1 kg
[~2016-09-30 03:39] MED LIST changes: +CETIRIZINE10 MG PO; +FAMOTIDINE20 M1 PO; +FENOFIBRATE160 MG PO; +LISINOPRIL20 MG PO; +METFORMIN1000 MG PO; +SYNTHROID,LEV175 MCG PO; +ZANTAC 150150 MG PO
[2016-09-30 04:08] LABS: BASO # 0.1 10*3/uL (0.0-0.1); BASO % 0.4 % (0.0-1.0); EOS # 0.2 10*3/uL (0.0-0.4); EOS % 1.4 % (1.0-4.0); HEMATOCRIT 39.7 % (37.0-47.0); HEMOGLOBIN 12.8 g/dl (12.0-16.0); IG # 0.1 10*3/uL (0.0-0.1); LYMPH # 2.5 10*3/uL (1.3-4.4); LYMPH % 15.3 % (27.0-41.0); MEAN CELL VOLUME 81.9 fl (81.0-99.0); MEAN CORPUSCULAR HGB 26.4 pg (27.0-31.0); MEAN CORPUSCULAR HGB CONC 32.2 g/dl (33.0-37.0); MEAN PLATELET VOLUME 11.6 fl (9.6-12.3); MONO # 1.1 10*3/uL (0.1-1.0); MONO % 6.4 % (3.0-9.0); NEUT # 12.5 10*3/uL (2.3-7.9); NEUT % 75.7 % (47.0-73.0); PLATELET COUNT AUTOMATED 221 10*3/uL (130-400); RED BLOOD COUNT 4.85 10*6/uL (4.10-5.10); RED CELL DISTRI WIDTH 13.9 % (0-14.5); WHITE BLOOD COUNT 16.6 10*3/uL (4.8-10.8)
[2016-09-30 04:26] LABS: ALBUMIN 3.5 gm/dl (3.1-4.5); ALKALINE PHOSPHATASE 225 U/L (45-117); BILIRUBIN, TOTAL 0.9 mg/dl (0.2-1.0); BUN 11 mg/dl (7-24); CARBON DIOXIDE 22 mmol/L (21-32); CHLORIDE 102 mmol/L (98-107); EST GLOM FILT AFRICAN AMERICAN > 60 ml/min; GLUCOSE 320 mg/dL (65-99); MAGNESIUM 1.8 mg/dL (1.5-2.1); SGOT/AST 70 IU/L (3-35); SGPT/ALT 92 U/L (12-78); SODIUM 137 mmol/L (136-145); TOTAL PROTEIN 7.5 gm/dL (6.4-8.2)
[2016-09-30 04:29] LABS: TROPONIN I < 0.015 ng/ml (<0.045)
[2016-09-30 04:33] LABS: INTERNATIONAL NORM RATIO 0.9 (2.0-3.5); PROTHROMBIN TIME 9.6 SECONDS (9.0-12.4)
[2016-09-30 04:46] LABS: BILIRUBIN NEGATIVE (NEGATIVE); BLOOD NEGATIVE (NEGATIVE); CLARITY SL CLOUDY (CLEAR); COLOR YELLOW (YELLOW); GLUCOSE 2+ (NEGATIVE); KETONE NEGATIVE (NEGATIVE); LEUKO ESTERASE NEGATIVE (NEGATIVE); NITRITE NEGATIVE (NEGATIVE); PH 5.5 (5.0-9.0); PROTEIN NEGATIVE (NEGATIVE); SPECIFIC GRAVITY 1.025 (1.005-1.030)
[2016-09-30 04:53] LABS: BACTERIA 3+; EPITHELIAL CELLS 15-20; URINE REFLEX COMMENT YES (NO)
[2016-09-30] MEDS ORDERED: ROBITUSSIN DM 105 ML PO (05:55)
[2016-09-30] MEDS ORDERED: LEVOFLOXACIN500 MG PO (05:55)
== END 2016-09-30 07:47 | disposition home or self-care (01) ==
LOC: ED 03:39
PROVIDERS: Emergency Medicine Emergency Medical Services
DX: J44.9 Chronic obstructive pulmonary disease, unspecified (principal); R82.71 Bacteriuria; E11.9 Type 2 diabetes mellitus without complications; E11.40 Type 2 diabetes mellitus with diabetic neuropathy, unspecified; K21.9 Gastro-esophageal reflux disease without esophagitis; I50.9 Heart failure, unspecified; E03.9 Hypothyroidism, unspecified; E78.5 Hyperlipidemia, unspecified; E55.9 Vitamin D deficiency, unspecified; E66.9 Obesity, unspecified; Z68.39 Body mass index [BMI] 39.0-39.9, adult; Z90.710 Acquired absence of both cervix and uterus; Z90.49 Acquired absence of other specified parts of digestive tract; Z98.890 Other specified postprocedural states; Z87.891 Personal history of nicotine dependence; Z98.51 Tubal ligation status; Z79.899 Other long term (current) drug therapy; Z88.1 Allergy status to other antibiotic agents; Z88.5 Allergy status to narcotic agent

== ENCOUNTER 2016-10-08 23:40 | Inpatient (IN) | payer OTHER ==
[~2016-10-08] VITALS: Ht 157.4 cm; Wt 97.6 kg
--- NOTE | ~2016-10-08 | PR ---
[place], [place] PROGRESS NOTE NAME: [facility] [id number] UNIT #: [id number] ROOM: 428 DOCTOR: SHEYLA ALCALA MD,NYDIA BIRTHDATE: [birth year] DOS: 10/12/2016 SUBJECTIVE: She has been continued on corticosteroids and bronchoscopy done yesterday resulting in reduction of coughing. The shortness of breath has been improving. There were no symptoms of chest pain. OBJECTIVE: VITAL SIGNS: Normal temperature, respiratory rate 20, heart rate 76, blood pressure 160/84 this morning. The pulse oxygen saturation recorded on room air 97% saturation. HEENT: Plts-ra-drkxpicp obesity. NECK: Supple. CARDIOVASCULAR: S1, S2 audible. LUNGS: Shows expiratory wheezing noted in the lungs bilaterally. ABDOMEN: Soft, nontender and obese. LABORATORY DATA: CBC this morning: WBC count 22.4. Remaining CBC was normal. BMP this morning was noted glucose 433, BUN 16, creatinine 1.22. The Gram stain of the bronchial washing from yesterday moderate white blood cells, few epithelial cells, rare gram-positive cocci in pairs and clusters with preliminary culture noted normal saroj. Final culture results were pending. IMPRESSION: Stable respiratory status noted with reduction of the respiratory symptom after post-bronchoscopy pending culture results. PLAN OF MANAGEMENT: No changes in the medical treatment at this time will be necessary. Continue patient's current plan of management as in progress. Usual care, other supportive plan of therapy and care. NYDIA CARRION MD CM:PNTRANS 0950 1010 NYDIA ALCALA MD 10/12/16 1010 interface
--- NOTE | ~2016-10-08 | CON ---
[place], [place] REPORT OF CONSULTATION NAME[id number] UNIT #: [id number] ROOM: 428 DOCTOR: NYDIA RESENDIZ MD BIRTHDATE: [birth year] DOS: 10/10/2016 PULMONARY CONSULTATION REASON FOR CONSULTATION: To assess the patient for ongoing acute respiratory symptom, the patient's severe cough and others. REQUESTING PHYSICIAN: Hospitalist services. HISTORY OF PRESENT ILLNESS: This is a 51-year-old white female, who has been admitted to the hospital under the hospitalist service on 10/09/2016. The patient presented to the Emergency Room for further assessment of the symptoms of coughing, which has been present for the past several days with gradual worsening and progression. The cough has been noted multiples times, episodic, could last several seconds, and still remain nonproductive. The patient was also noted with symptoms of shortness of breath associated with that with wheezing. Denies symptoms of chest pain or any abdominal pain. The patient has been seen in the Emergency Room on 09/30/2016 for the patient's current symptoms, was prescribed some medication, which did not help to improve the respiratory status. She continued to experience symptoms of shortness of breath, which has worsened now, cough, which was nonproductive with wheezing. She denies symptoms of chest tightness, but complained of pain under the rib because of excessive cough. She has been seen in the Emergency Room yesterday and was admitted to the hospital. REVIEW OF SYSTEMS: CONSTITUTIONAL: Symptoms of fatigue and tiredness noted without symptoms of fever or chills. EYES: Denies any burning, redness, or tenderness. EARS, NOSE, THROAT SYMPTOMS: No sore throat, hoarseness, otalgia, postnasal drainage or epistaxis. GASTROINTESTINAL: Dysphagia, nausea, vomiting, diarrhea, abdominal pain, hematemesis, melena, or hematochezia. GENITOURINARY: Denies dysuria, suprapubic pain, hematuria. MUSCULOSKELETAL: Denies acute joint pain, redness, or tenderness. SKIN: Denies lesions or rashes. CENTRAL NERVOUS SYSTEM: Denies dizziness, headache, diplopia or syncopal episodes. Remaining systems were reviewed with the patient, they were noted all negative. PAST MEDICAL HISTORY: Noted with the previous hospitalization in 07/2016 and in 09/2016 for the patient for COPD and other illnesses. PAST MEDICAL HISTORY: Was noted with history of: 1. Type 2 diabetes mellitus. 2. COPD/bronchial asthma. 3. Cervical radiculopathy. 4. General anxiety disorder. 5. History of gastroesophageal reflux. 6. Essential hypertension. [place], [place] REPORT OF CONSULTATION NAME: [facility] [id number] UNIT #: [id number] ROOM: [facility] DOCTOR: NYDIA RESENDIZ MD BIRTHDATE: [birth year] 7. Hyperlipidemia. 8. Hypothyroidism. 9. Moderate obesity. 10. Vitamin D deficiency. PAST SURGICAL HISTORY: 1. Cardiac catheterization. 2. Hysterectomy. 3. Lumpectomy in the left breast, which was described as benign. 4. Cholecystectomy. 5. Tubal ligation. 6. Complete hysterectomy later on. 7. Some kind of heart surgery in the patient with what appears like repair of valve for the patient in the heart or other anatomical artifact. SOCIAL HISTORY: The patient is currently , does not have any children. Denies history of alcohol use or illicit drug use. Tobacco use by the patient noted, ____ of this patient up to 2 packs of cigarettes per day that was discontinued for this patient in 2015. Denies any history of alcohol use or any illicit drugs. FAMILY HISTORY: The patient's father at age 57 years complication related to COPD. The mother for the patient is currently living, 72 years old, without any known medical illnesses. HOME MEDICATIONS: Listed on admission include use of Lipitor, vitamin D, fenofibrate, levothyroxine, lisinopril, loratadine, metformin, omega 3 fatty acids, and ranitidine. DRUG ALLERGIES: 1. ERYTHROMYCIN. 2. MORPHINE SULPHATE. PHYSICAL EXAMINATION: GENERAL: A 51-year-old female, who has been currently noted without any acute distress noted with excessive coughing several times at the time of the assessment. Height of 5 feet 3 inches, weight of 215 pounds, BMI 39.4. VITAL SIGNS: Shows a normal temperature, respiratory rate 20-18, heart rate of 77-105, blood pressure 140/67-143/67. HEENT: Neck Shows moderate obesity, was noted. Decreased posterior pharyngeal space with high tongue base crowding of soft tissue structures. Supple and obese. CARDIOVASCULAR SYSTEM: S1, S2 audible. LUNGS: Showed diffuse reduction in breath sounds with expiratory wheezing without any crackles. ABDOMEN: Soft, obese, nontender. EXTREMITIES: The patient shows no acute edema, clubbing or cyanosis. CENTRAL NERVOUS SYSTEM: Cranial nerves 2-12 intact. No focal deficit. MUSCULOSKELETAL: No acute deformities. SKIN: Showed no lesions or rashes. [place], [place] REPORT OF CONSULTATION NAME: TEREZA OROPEZA UNIT #: [id number] ROOM: [facility] DOCTOR: SENAIT RESENDIZ MDM BIRTHDATE: [birth year] LABORATORY DATA: The lactic acid was 1.5. The patient yesterday on admission, CBC yesterday in the Emergency Room 10/09: WBC count 11.8, hemoglobin 11.9, hematocrit 36.0, platelet count were normal. CMP of patient of 10/09, glucose 267, BUN 10, creatinine 1.07. Potassium 3.4. AST 46. Blood glucose of patient that was yesterday, was noted ____. The BMP of the patient that was done this morning shows BUN of 12, creatinine 1.13, glucose 423. CBC this morning, WBC count 25.4, hemoglobin 11.7, hematocrit 35.5, platelet count 284,000, 92% segmented neutrophils. The chest x-ray of the patient that was done shows cardiomegaly with increased interstitial markings without any gross area of infiltration. IMPRESSION: 1. The patient who has been currently admitted to the hospital noted with acute exacerbation of chronic obstructive pulmonary disease, which has been continued, not resolving for this patient with progressive worsening symptoms, failed outpatient treatment as well. The patient has been treated with antibiotics, bronchodilators and other several times without any much improvement. 2. Severe nonproductive cough of any expectorate sputum with the possibility of significant impaction of the mucus plugs in endobronchial tube was suspected. 3. History of nicotine abuse until a couple of years ago or less. The patient noted heavy smoker. 4. History of chronic obesity. 5. Uncontrolled diabetes mellitus. 6. Mild acute kidney secondary to most likely volume depletion. 7. Increased interstitial markings without any floral finding of congestive heart failure were noted. 8. Leukocytosis, most likely induced by the current corticosteroid administration. 9. History of vitamin D deficiency for this patient as well. PLAN OF MANAGEMENT: The patient was suggested about fiberoptic bronchoscopy that was planned to be done in the morning. Risks and benefits of procedure were discussed. The patient was continued on Mucinex, has a flutter valve in the meantime. Continue bronchodilators every 4 hours. DVT prophylaxis. Supportive therapy plan and management as well. Initial treatment changes continue be made for the patient based on progression of the illness. Usual care. Other additional treatment changes will be done based on progression of the illness. Obtain a chest x-ray of the patient, PA lateral view for more comprehensive assessment of any underlying new respiratory pathologies. The patient is agreeable for the bronchoscopy. The procedure was scheduled to be done in the morning. Risks and the benefits of procedure were discussed with the patient. Thanks for allowing me to participate in the care of this patient. [place], [place] REPORT OF CONSULTATION NAME: TEREZA OROPEZA UNIT #: [id number] ROOM: [facility] DOCTOR: NYDIA RESENDIZ MD BIRTHDATE: [birth year] NYDIA CARRION MD CM:CONSTR:REPORT OF CONSULTATION 1101 10/10/16 1527 interface
--- NOTE | ~2016-10-08 | PR ---
[place], [place] PROGRESS NOTE NAME: [facility] [id number] UNIT #: [id number] ROOM: 428 DOCTOR: SHEYLA ALCALA MD,NYDIA BIRTHDATE: [birth year] DOS: 10/13/2016 SUBJECTIVE: She has been still noticing coughing, which has been slowly subsiding. There were noted nonproductive. Denies symptoms of chest pain. The wheezing has been resolved. OBJECTIVE: VITAL SIGNS: For the patient which were recorded showed the temperature noted normal, respiratory rate 20, heart rate 82, blood pressure 160/86. The pulse oxygen saturation of the patient recorded as 99% on room air. HEENT: Chronic obesity. NECK: Supple. CARDIOVASCULAR: S1, S2 audible. LUNGS: Noted [id number] decreased breath sounds without wheezing or crackles. ABDOMEN: Soft, nontender. LABORATORY DATA: Culture of the bronchial washing showed normal asroj. CBC: WBC count of 20,000, otherwise normal. The BMP of the patient, glucose elevated at 380. BUN 18, creatinine 1.8. IMPRESSION: The patient with gradual and progressive resolution of leukocytosis and exacerbation of chronic obstructive pulmonary disease and tracheobronchitis. PLAN OF TREATMENT: From the pulmonary standpoint, the patient could be considered discharge home for this patient and to be followed up as an outpatient. Tapering dose of prednisone and antibiotics were recommended. NYDIA CARRION MD CM:PNTRANS 1232 1255 NYDIA ALCALA MD 10/13/16 1255 interface
--- NOTE | ~2016-10-08 | PROC NOTE ---
[place], [place] PROCEDURE NOTE NAME: TEREZA OROPEZA UNIT #: [id number] ROOM: 428 DOCTOR: SHEYLA ALCALA MD,NYDIA BIRTHDATE: [birth year] DOS: 10/11/2016 PREOPERATIVE DIAGNOSES: Severe nonproductive cough. The patient with wheezing. POSTOPERATIVE DIAGNOSES: Removal of mucus plugs and bronchial tree bilaterally without any difficulty. There were no endobronchial obstructive lesions. PROCEDURE DESCRIPTION: Informed consent obtained for the patient. She was brought to the OR and placed in supine position. Conscious sedation administered by the Anesthesia Department. After achieving appropriate sedation, airway introduced into the mouth. Bronchoscope advanced into the airway into laryngeal area. Epiglottis and vocal cords were seen. The vocal cords moving symmetrically with movements. The bronchoscope advanced to the vocal cord and tracheal lumen that shows moderate amount of mucoid secretions suctioned out of the nicholas level. Moderate amount of plugs and mucus cleared from the right upper, right middle, left upper, lingula, and lower lobe bronchi. The procedure was tolerated by the patient without any difficulty. Postoperative findings will be discussed with the patient once the patient recovers the effects of acute sedation. NYDIA CARRION MD CM:PROCNOTE:PROCEDURE NOTE 1158 1218 NYDIA ALCALA MD
--- NOTE | ~2016-10-08 | PR ---
[place], [place] PROGRESS NOTE NAME: TEREZA OROPEZA UNIT #: [id number] ROOM: 428 DOCTOR: SHEYLA ALCALA MD,NYDIA BIRTHDATE: [birth year] DOS: 10/11/2016 SUBJECTIVE: She has been currently noted n.p.o. past midnight and bronchoscopy planned for today. She has not been reported to have any symptoms of chest pain. The cough has been noted same as nonproductive and intermittently as well as episodic. The wheezing was also noted. Shortness of breath occurs with exertion. OBJECTIVE: VITAL SIGNS: Shows the temperature noted as normal. Respiratory rate 19, heart rate 81, blood pressure 150/66 and 133/78. HEENT: Showed no new changes. NECK: Supple. CARDIOVASCULAR: S1, S2 is audible. LUNGS: The patient was noted without any wheezing or crackles at the present time. The breaths are noted generally diminished bilaterally. ABDOMEN: Soft, nontender. EXTREMITIES: Show no edema. LABORATORY DATA: CBC in the labs today: WBC count 26.6, hemoglobin 11.7, hematocrit 36.5, platelet count was normal. CMP this morning noted BUN 16, creatinine 1.21. IMPRESSION: The patient with ongoing acute severe exacerbation of bronchial asthma/chronic obstructive pulmonary disease with nonproductive cough. PLAN OF TREATMENT: No changes in the plan of therapy at this time. Continue the patient's current therapy, plan of management. Monitor leukocytosis. No changes in the treatment, initially, at this time will be necessary. We will make changes in treatment after bronchoscopy if necessary. NYDIA CARRION MD CM:PNTRANS 1157 1311 NYDIA ALCALA MD 10/11/16 1311 interface
[~2016-10-08 23:40] MED LIST changes: +LEVOFLOXACIN500 MG PO
[2016-10-08 23:47] VITALS: BP 181/79
[2016-10-09] VITALS (7 sets, daily range): BP systolic 137–163; BP diastolic 61–90
[2016-10-09 00:38] LABS: BASO # 0.1 10*3/uL (0.0-0.1); BASO % 0.4 % (0.0-1.0); EOS # 0.3 10*3/uL (0.0-0.4); EOS % 2.5 % (1.0-4.0); HEMOGLOBIN 11.9 g/dl (12.0-16.0); IG # 0.3 10*3/uL (0.0-0.1); LYMPH # 3.3 10*3/uL (1.3-4.4); LYMPH % 28.4 % (27.0-41.0); MEAN CELL VOLUME 81.4 fl (81.0-99.0); MEAN CORPUSCULAR HGB 26.9 pg (27.0-31.0); MEAN CORPUSCULAR HGB CONC 33.1 g/dl (33.0-37.0); MEAN PLATELET VOLUME 11.8 fl (9.6-12.3); MONO # 0.8 10*3/uL (0.1-1.0); MONO % 6.7 % (3.0-9.0); NEUT # 7.1 10*3/uL (2.3-7.9); NEUT % 59.8 % (47.0-73.0); PLATELET COUNT AUTOMATED 262 10*3/uL (130-400); RED BLOOD COUNT 4.42 10*6/uL (4.10-5.10); RED CELL DISTRI WIDTH 13.8 % (0-14.5); WHITE BLOOD COUNT 11.8 10*3/uL (4.8-10.8)
[2016-10-09 00:54] LABS: ALBUMIN 3.2 gm/dl (3.1-4.5); ALKALINE PHOSPHATASE 171 U/L (45-117); BILIRUBIN, TOTAL 0.4 mg/dl (0.2-1.0); BUN 10 mg/dl (7-24); C-REACTIVE PROTEIN 0.49 MG/DL (0-0.3); CARBON DIOXIDE 25 mmol/L (21-32); CHLORIDE 105 mmol/L (98-107); EST GLOM FILT AFRICAN AMERICAN > 60 ml/min; GLUCOSE 267 mg/dL (65-99); MAGNESIUM 1.7 mg/dL (1.5-2.1); POTASSIUM 3.4 mmol/L (3.5-5.1); SGOT/AST 46 IU/L (3-35); SGPT/ALT 44 U/L (12-78); SODIUM 140 mmol/L (136-145); TOTAL PROTEIN 6.8 gm/dL (6.4-8.2)
[2016-10-09 00:55] LABS: TROPONIN I < 0.015 ng/ml (<0.045)
[2016-10-09] MEDS ORDERED: VITAMIN D-32000 UNI1 PO (10:38)
[2016-10-10] VITALS: BP 148/67
[2016-10-10 04:45] LABS: HEMATOCRIT 35.5 % (37.0-47.0); HEMOGLOBIN 11.7 g/dl (12.0-16.0); MEAN CELL VOLUME 81.6 fl (81.0-99.0); MEAN CORPUSCULAR HGB 26.9 pg (27.0-31.0); MEAN PLATELET VOLUME 12.3 fl (9.6-12.3); PLATELET COUNT AUTOMATED 284 10*3/uL (130-400); RED BLOOD COUNT 4.35 10*6/uL (4.10-5.10); WHITE BLOOD COUNT 25.4 10*3/uL (4.8-10.8)
[2016-10-10 05:06] LABS: BUN 12 mg/dl (7-24); CARBON DIOXIDE 25 mmol/L (21-32); CHLORIDE 102 mmol/L (98-107); EST GLOM FILT AFRICAN AMERICAN > 60 ml/min; GLUCOSE 426 mg/dL (65-99); SODIUM 136 mmol/L (136-145)
[2016-10-10 05:07] LABS: POTASSIUM 4.6 mmol/L (3.5-5.1)
[2016-10-10 05:11] LABS: LYMPHOCYTE # 1.8 10*3/uL (1.3-4.4); MONOCYTE # 0.3 10*3/uL (0.1-1.0); NEUTROPHIL # 23.4 10*3/uL (2.3-7.9); NEUTROPHILS 92 % (47-73); PLATELET SUFFICIENCY NORMAL (NORMAL); TOTAL CELLS COUNTED 100 #CELLS
[2016-10-10 08:00] VITALS: BP 143/67
[2016-10-10 12:00] VITALS: BP 136/66
[2016-10-10 16:00] VITALS: BP 129/54
[2016-10-10 20:00] VITALS: BP 153/73
[2016-10-11] VITALS (9 sets, daily range): BP systolic 133–175; BP diastolic 66–88
[2016-10-11 05:13] LABS: HEMATOCRIT 36.5 % (37.0-47.0); HEMOGLOBIN 11.7 g/dl (12.0-16.0); MEAN CELL VOLUME 83.1 fl (81.0-99.0); MEAN CORPUSCULAR HGB 26.7 pg (27.0-31.0); MEAN CORPUSCULAR HGB CONC 32.1 g/dl (33.0-37.0); MEAN PLATELET VOLUME 12.5 fl (9.6-12.3); NUCLEATED RED BLOOD CELL 0.1 % (0.0-0.0); PLATELET COUNT AUTOMATED 295 10*3/uL (130-400); RED BLOOD COUNT 4.39 10*6/uL (4.10-5.10); RED CELL DISTRI WIDTH 14.4 % (0-14.5); WHITE BLOOD COUNT 26.6 10*3/uL (4.8-10.8)
[2016-10-11 05:31] LABS: ALBUMIN 3.3 gm/dl (3.1-4.5); BILIRUBIN, TOTAL 0.4 mg/dl (0.2-1.0); POTASSIUM 4.6 mmol/L (3.5-5.1); TOTAL PROTEIN 6.8 gm/dL (6.4-8.2)
[2016-10-11 06:05] LABS: LYMPHOCYTE # 2.9 10*3/uL (1.3-4.4); MONOCYTE # 0.3 10*3/uL (0.1-1.0); NEUTROPHIL # 23.4 10*3/uL (2.3-7.9); NEUTROPHILS 88 % (47-73); PLATELET SUFFICIENCY NORMAL (NORMAL); TOTAL CELLS COUNTED 100 #CELLS
[2016-10-12] VITALS: BP 156/84
[2016-10-12 05:50] LABS: POTASSIUM 4.1 mmol/L (3.5-5.1)
[2016-10-12 05:52] LABS: HEMATOCRIT 37.5 % (37.0-47.0); HEMOGLOBIN 11.9 g/dl (12.0-16.0); MEAN CORPUSCULAR HGB 26.3 pg (27.0-31.0); MEAN CORPUSCULAR HGB CONC 31.7 g/dl (33.0-37.0); PLATELET COUNT AUTOMATED 273 10*3/uL (130-400); RED BLOOD COUNT 4.52 10*6/uL (4.10-5.10); RED CELL DISTRI WIDTH 14.2 % (0-14.5); WHITE BLOOD COUNT 22.4 10*3/uL (4.8-10.8)
[2016-10-12 07:13] LABS: LYMPHOCYTE # 1.6 10*3/uL (1.3-4.4); METAMYELOCYTES 1 % (0-0); MONOCYTE # 0.2 10*3/uL (0.1-1.0); NEUTROPHIL # 20.4 10*3/uL (2.3-7.9); NEUTROPHILS 91 % (47-73); PLATELET SUFFICIENCY NORMAL (NORMAL); TOTAL CELLS COUNTED 100 #CELLS
[2016-10-12 08:00] VITALS: BP 168/84
[2016-10-12 12:00] VITALS: BP 140/56
[2016-10-12 16:00] VITALS: BP 161/78
[2016-10-12 17:11] LABS: ACID FAST SPEC PROCESSING Concentration (.)
[2016-10-12 20:00] VITALS: BP 160/65
[2016-10-13] VITALS: BP 174/82
[2016-10-13 06:39] LABS: HEMATOCRIT 37.8 % (37.0-47.0); HEMOGLOBIN 12.2 g/dl (12.0-16.0); MEAN CORPUSCULAR HGB 26.5 pg (27.0-31.0); MEAN CORPUSCULAR HGB CONC 32.3 g/dl (33.0-37.0); MEAN PLATELET VOLUME 12.5 fl (9.6-12.3); PLATELET COUNT AUTOMATED 263 10*3/uL (130-400); RED BLOOD COUNT 4.61 10*6/uL (4.10-5.10); RED CELL DISTRI WIDTH 14.1 % (0-14.5); WHITE BLOOD COUNT 20.1 10*3/uL (4.8-10.8)
[2016-10-13 07:08] LABS: POTASSIUM 4.1 mmol/L (3.5-5.1)
[2016-10-13 07:12] LABS: ATYPICAL LYMPHS 1 % (0-0); LYMPHOCYTE # 2.2 10*3/uL (1.3-4.4); NEUTROPHIL # 16.9 10*3/uL (2.3-7.9); NEUTROPHILS 84 % (47-73); PLATELET SUFFICIENCY NORMAL (NORMAL); TOTAL CELLS COUNTED 100 #CELLS
[2016-10-13 07:13] LABS: VACUOLATION OF NEUTROPHILS SLIGHT
[2016-10-13 08:00] VITALS: BP 160/86
[2016-10-13] MEDS ORDERED: MUCINEX ER600 MG PO (13:28)
[2016-10-13] MEDS ORDERED: DOXYCYCLINE100 M3 PO (13:29)
[2016-10-13] MEDS ORDERED: PREDNISONE10 MG PO (13:29)
== END 2016-10-13 16:32 | disposition home or self-care (01) | DRG 871 ==
LOC: ED 23:40 → EDHOLD 10-09 01:07 → 4E 10-09 01:07
PROVIDERS: Family Medicine; Internal Medicine; Internal Medicine Critical Care Medicine
PROC: 0BC28ZZ Extirpation of Matter from Carina, Via Natural or Artificial Opening Endoscopic (ICD-10-PCS; principal; 2016-10-11)
PROC: 0BCB8ZZ Extirpation of Matter from Left Lower Lobe Bronchus, Via Natural or Artificial Opening Endoscopic (ICD-10-PCS; 2016-10-11)
PROC: 0BC98ZZ Extirpation of Matter from Lingula Bronchus, Via Natural or Artificial Opening Endoscopic (ICD-10-PCS; 2016-10-11)
PROC: 0BC88ZZ Extirpation of Matter from Left Upper Lobe Bronchus, Via Natural or Artificial Opening Endoscopic (ICD-10-PCS; 2016-10-11)
PROC: 0BC58ZZ Extirpation of Matter from Right Middle Lobe Bronchus, Via Natural or Artificial Opening Endoscopic (ICD-10-PCS; 2016-10-11)
PROC: 0BC48ZZ Extirpation of Matter from Right Upper Lobe Bronchus, Via Natural or Artificial Opening Endoscopic (ICD-10-PCS; 2016-10-11)
DX: A41.9 Sepsis, unspecified organism (principal); J18.9 Pneumonia, unspecified organism; I11.0 Hypertensive heart disease with heart failure; E44.0 Moderate protein-calorie malnutrition; J44.0 Chronic obstructive pulmonary disease with (acute) lower respiratory infection; I50.32 Chronic diastolic (congestive) heart failure; J45.901 Unspecified asthma with (acute) exacerbation; E11.40 Type 2 diabetes mellitus with diabetic neuropathy, unspecified; J44.1 Chronic obstructive pulmonary disease with (acute) exacerbation; E55.9 Vitamin D deficiency, unspecified; E66.8 Other obesity; B37.3 Candidiasis of vulva and vagina; F41.1 Generalized anxiety disorder; E11.65 Type 2 diabetes mellitus with hyperglycemia; F32.9 Major depressive disorder, single episode, unspecified; K21.9 Gastro-esophageal reflux disease without esophagitis; E03.9 Hypothyroidism, unspecified; E78.2 Mixed hyperlipidemia; Z68.39 Body mass index [BMI] 39.0-39.9, adult; Z79.84 Long term (current) use of oral hypoglycemic drugs; Z79.899 Other long term (current) drug therapy; Z88.1 Allergy status to other antibiotic agents; Z88.5 Allergy status to narcotic agent; Z90.710 Acquired absence of both cervix and uterus; Z90.49 Acquired absence of other specified parts of digestive tract; Z98.51 Tubal ligation status; Z87.891 Personal history of nicotine dependence; Z82.5 Family history of asthma and other chronic lower respiratory diseases

== ENCOUNTER 2016-10-17 14:37 | Emergency (ER) | payer OTHER ==
[~2016-10-17] VITALS: Ht 157.4 cm; Wt 97.1 kg
[~2016-10-17 14:37] MED LIST changes: +DOXYCYCLINE100 M3 PO; +MUCINEX ER600 MG PO; +VITAMIN D-32000 UNI1 PO
== END 2016-10-17 16:38 | disposition home or self-care (01) ==
LOC: ED 14:37
DX: B37.0 Candidal stomatitis (principal); K21.9 Gastro-esophageal reflux disease without esophagitis; I11.0 Hypertensive heart disease with heart failure; I50.9 Heart failure, unspecified; E78.5 Hyperlipidemia, unspecified; E03.9 Hypothyroidism, unspecified; J44.9 Chronic obstructive pulmonary disease, unspecified; E11.40 Type 2 diabetes mellitus with diabetic neuropathy, unspecified; E66.9 Obesity, unspecified; Z68.39 Body mass index [BMI] 39.0-39.9, adult; Z90.710 Acquired absence of both cervix and uterus; Z90.49 Acquired absence of other specified parts of digestive tract; Z98.51 Tubal ligation status; Z98.890 Other specified postprocedural states; Z87.891 Personal history of nicotine dependence; Z79.899 Other long term (current) drug therapy; Z88.1 Allergy status to other antibiotic agents; Z88.5 Allergy status to narcotic agent

== ENCOUNTER 2016-11-03 10:43 | Emergency (ER) | payer OTHER ==
[~2016-11-03] VITALS: Ht 157.4 cm; Wt 93.9 kg
[2016-11-03] MEDS ORDERED: MEDROL DOSEPAK4 MG PO (12:13)
== END 2016-11-03 12:20 | disposition home or self-care (01) ==
LOC: ED 10:43
DX: R21 Rash and other nonspecific skin eruption (principal); L29.9 Pruritus, unspecified; Z88.1 Allergy status to other antibiotic agents; Z88.6 Allergy status to analgesic agent; Z79.899 Other long term (current) drug therapy; Z87.891 Personal history of nicotine dependence

== ENCOUNTER 2016-12-24 15:52 | Inpatient (IN) | payer OTHER ==
[~2016-12-24] VITALS: Ht 157.4 cm; Wt 93.1 kg
[2016-12-24 16:15] VITALS: BP 142/80
[2016-12-24 16:31] LABS: BASO % 0.4 % (0.0-1.0); EOS # 0.2 10*3/uL (0.0-0.4); EOS % 1.3 % (1.0-4.0); HEMATOCRIT 38.3 % (37.0-47.0); HEMOGLOBIN 12.7 g/dl (12.0-16.0); LYMPH # 3.2 10*3/uL (1.3-4.4); LYMPH % 27.9 % (27.0-41.0); MEAN CELL VOLUME 80.3 fl (81.0-99.0); MEAN CORPUSCULAR HGB 26.6 pg (27.0-31.0); MEAN CORPUSCULAR HGB CONC 33.2 g/dl (33.0-37.0); MEAN PLATELET VOLUME 11.9 fl (9.6-12.3); MONO # 0.7 10*3/uL (0.1-1.0); MONO % 6.5 % (3.0-9.0); NEUT # 7.2 10*3/uL (2.3-7.9); NEUT % 63.5 % (47.0-73.0); PLATELET COUNT AUTOMATED 257 10*3/uL (130-400); RED BLOOD COUNT 4.77 10*6/uL (4.10-5.10); RED CELL DISTRI WIDTH 13.7 % (0-14.5); WHITE BLOOD COUNT 11.3 10*3/uL (4.8-10.8)
[2016-12-24 16:43] LABS: ACT PARTIAL THROMBO TIME 23.5 SECONDS (20.8-31.5); INTERNATIONAL NORM RATIO 0.9 (2.0-3.5)
[2016-12-24 16:51] LABS: ALBUMIN 3.4 gm/dl (3.1-4.5); ALKALINE PHOSPHATASE 159 U/L (45-117); BUN 13 mg/dl (7-24); CHLORIDE 104 mmol/L (98-107); CREATININE 0.95 mg/dL (0.55-1.02); MAGNESIUM 1.7 mg/dL (1.5-2.1); POTASSIUM 3.5 mmol/L (3.5-5.1); SGOT/AST 22 IU/L (3-35); SGPT/ALT 32 U/L (12-78); SODIUM 139 mmol/L (136-145); TOTAL PROTEIN 7.3 gm/dL (6.4-8.2)
[2016-12-24 16:53] LABS: TROPONIN I < 0.015 ng/ml (<0.045)
[2016-12-24 18:15] VITALS: BP 142/78
--- NOTE | 2016-12-24 18:54 | NUR ---
[facility] , under the services of EVELINE Ro DO with a diagnosis of CHEST PAIN. Chief complaint is DENIES AT PRESENT. Patient arrived via bed from ER. Monitor applied. Initial assessment completed. Vital signs taken and recorded. EVELINE RO DO notified of admission to the unit. Orders received. See assessment for past medical history, medications and allergies. Patient and/or family oriented to unit. [facility] visitation policy reviewed. Clothing/patient valuable form completed. TABATHA ARANA
[2016-12-24 20:00] VITALS: BP 150/70
--- NOTE | 2016-12-24 20:00 | NUR ---
ASSUMED CARE OF PATIENT. ASSESSMENT COMPLETE. SITTING UP ON SIDE OF BED. CALL LIGHT IN REACH. WILL CONTINUE TO MONITOR.
--- NOTE | 2016-12-24 20:36 | NUR ---
NO DIET ORDER, PT REQUESTING SOMETHING TO DRINK. CALLED AND SPOKE TO DR OJEDA. HE STATES HE IS PUTTING ORDERS IN NOW. ALSO MADE HIM AWARE THAT PT VERY ANXIOUS, CRYING. HE STATES HE WILL ORDER HER SOMETHING TO HELP HER RELAX.
--- NOTE | 2016-12-24 23:46 | NUR ---
MEDICATED WITH PRN TYLENOL FOR C/O BILATERAL SHOULDER PAIN. RATES 10/11.
[2016-12-25] VITALS: BP 147/69
--- NOTE | 2016-12-25 01:05 | NUR ---
PT CLAIMS BILAT SHOULDER PAIN REDUCED POST TYLENOL ADMINISTRATION.
--- NOTE | 2016-12-25 06:46 | NUR ---
PT RECEIVED TYLENOL FOR PAIN RATED 5/10.
[2016-12-25 06:51] LABS: BASO % 0.4 % (0.0-1.0); EOS # 0.3 10*3/uL (0.0-0.4); EOS % 2.9 % (1.0-4.0); HEMATOCRIT 38.3 % (37.0-47.0); HEMOGLOBIN 12.6 g/dl (12.0-16.0); LYMPH % 32.6 % (27.0-41.0); MEAN CELL VOLUME 81.1 fl (81.0-99.0); MEAN CORPUSCULAR HGB 26.7 pg (27.0-31.0); MEAN CORPUSCULAR HGB CONC 32.9 g/dl (33.0-37.0); MEAN PLATELET VOLUME 12.1 fl (9.6-12.3); MONO # 0.7 10*3/uL (0.1-1.0); MONO % 7.2 % (3.0-9.0); NEUT # 5.2 10*3/uL (2.3-7.9); NEUT % 56.5 % (47.0-73.0); PLATELET COUNT AUTOMATED 245 10*3/uL (130-400); RED BLOOD COUNT 4.72 10*6/uL (4.10-5.10); RED CELL DISTRI WIDTH 13.7 % (0-14.5); WHITE BLOOD COUNT 9.2 10*3/uL (4.8-10.8)
[2016-12-25 07:20] LABS: BUN 11 mg/dl (7-24); CHLORIDE 105 mmol/L (98-107); CHOLESTEROL 150 mg/dL (<200); CREATININE 0.85 mg/dL (0.55-1.02); HDL CHOLESTEROL 28 mg/dl (40-60); PHOSPHOROUS 3.7 mg/dL (2.5-4.9); POTASSIUM 3.7 mmol/L (3.5-5.1); SODIUM 138 mmol/L (136-145); TRIGLYCERIDES 417 mg/dl (<150)
[2016-12-25 08:00] VITALS: BP 162/86
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
[2016-12-25 12:00] VITALS: BP 139/68
--- NOTE | 2016-12-25 13:22 | NUR ---
TYLENOL GIVEN PER REQUEST FOR C/O GENERALIZED DISCOMFORT. WILL MONITOR.
--- NOTE | 2016-12-25 14:30 | NUR ---
TYLENOL EFFECTIVE PER PT.
[2016-12-25 17:29] VITALS: BP 159/95
--- NOTE | 2016-12-25 18:14 | NUR ---
ccdis Discharge instructions reviewed with patient/family. Patient receptive and verbalizes understanding. Follow-up care arranged. Written instructions given to patient/family. TABATHA ARANA
== END 2016-12-25 18:14 | disposition home or self-care (01) | DRG 313 ==
LOC: ED 15:52 → EDHOLD 18:01 → 5E 18:01
PROVIDERS: Emergency Medicine; Student in an Organized Health Care Education/Training Program; ADMIT Internal Medicine
DX: R07.89 Other chest pain (principal); E11.40 Type 2 diabetes mellitus with diabetic neuropathy, unspecified; I50.30 Unspecified diastolic (congestive) heart failure; I11.0 Hypertensive heart disease with heart failure; E44.1 Mild protein-calorie malnutrition; E11.65 Type 2 diabetes mellitus with hyperglycemia; J44.9 Chronic obstructive pulmonary disease, unspecified; F41.9 Anxiety disorder, unspecified; K21.9 Gastro-esophageal reflux disease without esophagitis; F32.9 Major depressive disorder, single episode, unspecified; E03.9 Hypothyroidism, unspecified; E66.9 Obesity, unspecified; E55.9 Vitamin D deficiency, unspecified; E78.2 Mixed hyperlipidemia; Z68.37 Body mass index [BMI] 37.0-37.9, adult; Z88.6 Allergy status to analgesic agent; Z88.1 Allergy status to other antibiotic agents; Z79.84 Long term (current) use of oral hypoglycemic drugs; Z79.899 Other long term (current) drug therapy; Z87.01 Personal history of pneumonia (recurrent); Z90.710 Acquired absence of both cervix and uterus; Z90.49 Acquired absence of other specified parts of digestive tract; Z98.51 Tubal ligation status; Z87.891 Personal history of nicotine dependence; Z83.6 Family history of other diseases of the respiratory system; Z84.89 Family history of other specified conditions

== ENCOUNTER 2017-01-07 09:54 | Emergency (ER) | payer OTHER ==
[~2017-01-07] VITALS: Wt 93.0 kg
== END 2017-01-07 11:46 | disposition home or self-care (01) ==
LOC: ED 09:54
DX: L29.8 Other pruritus (principal); T46.7X5A Adverse effect of peripheral vasodilators, initial encounter; I11.0 Hypertensive heart disease with heart failure; I50.30 Unspecified diastolic (congestive) heart failure; J44.9 Chronic obstructive pulmonary disease, unspecified; E11.40 Type 2 diabetes mellitus with diabetic neuropathy, unspecified; Z79.4 Long term (current) use of insulin; E78.2 Mixed hyperlipidemia; E03.9 Hypothyroidism, unspecified; K21.9 Gastro-esophageal reflux disease without esophagitis; Z88.6 Allergy status to analgesic agent; Z88.1 Allergy status to other antibiotic agents; Z88.8 Allergy status to other drugs, medicaments and biological substances; Z79.899 Other long term (current) drug therapy; Z87.891 Personal history of nicotine dependence; Y92.9 Unspecified place or not applicable

== ENCOUNTER 2017-01-14 14:30 | Emergency (ER) | payer OTHER ==
[~2017-01-14] VITALS: Wt 93.0 kg
[2017-01-14] MEDS ORDERED: DELTASONE20 M1 PO (16:58)
[2017-01-14] MEDS ORDERED: VIBRAMYCIN100 MG PO (16:58)
== END 2017-01-14 18:15 | disposition home or self-care (01) ==
LOC: ED 14:30
DX: J40 Bronchitis, not specified as acute or chronic (principal); J45.909 Unspecified asthma, uncomplicated; Z87.891 Personal history of nicotine dependence; Z90.710 Acquired absence of both cervix and uterus; Z90.49 Acquired absence of other specified parts of digestive tract; Z98.51 Tubal ligation status; Z98.890 Other specified postprocedural states; Z79.899 Other long term (current) drug therapy; Z88.1 Allergy status to other antibiotic agents; Z88.5 Allergy status to narcotic agent; Z88.8 Allergy status to other drugs, medicaments and biological substances; Z87.01 Personal history of pneumonia (recurrent)

== ENCOUNTER 2017-01-28 18:20 | Emergency (ER) | payer OTHER ==
[~2017-01-28] VITALS: Ht 157.4 cm; Wt 94.3 kg
[~2017-01-28 18:20] MED LIST changes: +DELTASONE20 M1 PO
[2017-01-28] MEDS ORDERED: CYCLOBENZAPRINE5 M3 PO (20:37)
[2017-01-28] MEDS ORDERED: Motrin,Rufen800 MG PO (20:37)
== END 2017-01-28 20:49 | disposition home or self-care (01) ==
LOC: ED 18:20
DX: M16.11 Unilateral primary osteoarthritis, right hip (principal); M54.5 Low back pain; Z88.1 Allergy status to other antibiotic agents; Z88.6 Allergy status to analgesic agent; Z88.8 Allergy status to other drugs, medicaments and biological substances; Z79.899 Other long term (current) drug therapy; Z87.891 Personal history of nicotine dependence

== ENCOUNTER → 2017-01-31 | Outpatient (CLI) | payer OTHER ==
[~2017-01-31] MED LIST changes: +CYCLOBENZAPRINE5 M3 PO; +Motrin,Rufen800 MG PO
== END | disposition home or self-care (01) ==
LOC: US 14:43
DX: R22.41 Localized swelling, mass and lump, right lower limb (principal)

== ENCOUNTER 2017-02-04 16:53 | Emergency (ER) | payer OTHER ==
[~2017-02-04] VITALS: Wt 93.9 kg
[2017-02-04] MEDS ORDERED: KETOROLAC10 MG PO (18:48)
== END 2017-02-04 18:53 | disposition home or self-care (01) ==
LOC: ED 16:53
DX: M25.551 Pain in right hip (principal); Z88.1 Allergy status to other antibiotic agents; Z88.6 Allergy status to analgesic agent; Z79.899 Other long term (current) drug therapy; Z90.710 Acquired absence of both cervix and uterus; Z90.49 Acquired absence of other specified parts of digestive tract; Z98.51 Tubal ligation status; Z87.891 Personal history of nicotine dependence

== ENCOUNTER → 2017-02-07 | Outpatient (CLI) | payer OTHER ==
[~2017-02-07] MED LIST changes: +KETOROLAC10 MG PO
== END | disposition home or self-care (01) ==
LOC: MRI 09:31
DX: M16.0 Bilateral primary osteoarthritis of hip (principal)

== ENCOUNTER 2017-04-11 12:58 | Emergency (ER) | payer OTHER ==
[~2017-04-11] VITALS: Ht 157.4 cm; Wt 91.2 kg
[2017-04-11 14:35] LABS: BASO # 0.1 10*3/uL (0.0-0.1); BASO % 0.4 % (0.0-1.0); EOS # 0.4 10*3/uL (0.0-0.4); EOS % 2.1 % (1.0-4.0); HEMATOCRIT 41.7 % (37.0-47.0); HEMOGLOBIN 13.8 g/dl (12.0-16.0); LYMPH # 3.5 10*3/uL (1.3-4.4); LYMPH % 20.9 % (27.0-41.0); MEAN CELL VOLUME 78.8 fl (81.0-99.0); MEAN CORPUSCULAR HGB 26.1 pg (27.0-31.0); MEAN CORPUSCULAR HGB CONC 33.1 g/dl (33.0-37.0); MEAN PLATELET VOLUME 11.6 fl (9.6-12.3); MONO # 1.1 10*3/uL (0.1-1.0); MONO % 6.5 % (3.0-9.0); NEUT # 11.7 10*3/uL (2.3-7.9); NEUT % 69.4 % (47.0-73.0); PLATELET COUNT AUTOMATED 320 10*3/uL (130-400); RED BLOOD COUNT 5.29 10*6/uL (4.10-5.10); RED CELL DISTRI WIDTH 14.3 % (0-14.5); WHITE BLOOD COUNT 16.8 10*3/uL (4.8-10.8)
[2017-04-11 14:50] LABS: ALBUMIN 3.6 gm/dl (3.1-4.5); ALKALINE PHOSPHATASE 184 U/L (45-117); BUN 14 mg/dl (7-24); CHLORIDE 102 mmol/L (98-107); CREATININE 1.05 mg/dL (0.55-1.02); POTASSIUM 4.2 mmol/L (3.5-5.1); SGOT/AST 21 IU/L (3-35); SGPT/ALT 34 U/L (12-78); SODIUM 137 mmol/L (136-145); TOTAL PROTEIN 8.3 gm/dL (6.4-8.2)
[2017-04-11] MEDS ORDERED: PROAIR HFA8.5 GM INH (15:03)
[2017-04-11] MEDS ORDERED: PREDNISONE20 M1 PO (15:03)
[2017-04-11] MEDS ORDERED: LEVOFLOXACIN500 MG PO (15:09)
== END 2017-04-11 15:15 | disposition home or self-care (01) ==
LOC: ED 12:58
PROVIDERS: Nurse Practitioner Family
DX: J18.1 Lobar pneumonia, unspecified organism (principal); Z90.710 Acquired absence of both cervix and uterus; Z98.890 Other specified postprocedural states; Z98.51 Tubal ligation status; Z87.891 Personal history of nicotine dependence; Z90.49 Acquired absence of other specified parts of digestive tract; Z79.899 Other long term (current) drug therapy; Z88.1 Allergy status to other antibiotic agents; Z88.5 Allergy status to narcotic agent

== ENCOUNTER → 2017-04-29 | Outpatient (CLI) | payer OTHER ==
[~2017-04-29] MED LIST changes: +PROAIR HFA8.5 GM INH
--- NOTE | ~2017-04-29 | HM ---
[place], [place] HOLTER MONITOR REPORT [id number] UNIT #: [id number] ROOM: DOCTOR: ANDREW BLAKE MD BIRTHDATE: [birth year] DOS: 04/30/2017 The recording was analyzed and interpreted and this is being dictated on 04/30/2017. INDICATIONS: Palpitations. FINDINGS: The patient was monitored for 24 hours utilizing a Holter device. She was in sinus rhythm the entire time. Average heart rate was 89 with heart rates varying from 63-121 beats per minute, in sinus rhythm. Rare premature ventricular contractions were recorded with 1 couplet. There was no ventricular tachycardia seen. Frequent premature atrial contractions were recorded with occasional couplets and a single 5-beat run of SVT recorded. The SVT was recorded at 12:20 p.m. There were no prolonged pauses. A diary was returned, but no symptoms were noted. IMPRESSION: 1. Normal sinus rhythm. 2. Frequent premature atrial contractions with a single 5-beat run of SVT recorded. 3. No symptoms reported. ANDREW BLAKE MD CM:HOLTER:HOLTER MONITOR REPORT 48 03 ANDREW BLAKE MD
[2017-04-29 09:36] LABS: HEMATOCRIT 43.9 % (37.0-47.0); HEMOGLOBIN 14.3 g/dl (12.0-16.0); MEAN CORPUSCULAR HGB CONC 32.6 g/dl (33.0-37.0); MEAN PLATELET VOLUME 11.9 fl (9.6-12.3); RED BLOOD COUNT 5.49 10*6/uL (4.10-5.10); WHITE BLOOD COUNT 12.1 10*3/uL (4.8-10.8)
[2017-04-29 10:01] LABS: ALBUMIN 3.8 gm/dl (3.1-4.5); BUN 15 mg/dl (7-24); CHLORIDE 103 mmol/L (98-107); CHOLESTEROL 159 mg/dL (<200); CREATININE 1.01 mg/dL (0.55-1.02); POTASSIUM 4.1 mmol/L (3.5-5.1); SGOT/AST 48 IU/L (3-35); SGPT/ALT 57 U/L (12-78); SODIUM 137 mmol/L (136-145); TRIGLYCERIDES 409 mg/dl (<150)
[2017-04-29 10:10] LABS: ALKALINE PHOSPHATASE 164 U/L (45-117); HDL CHOLESTEROL 34 mg/dl (40-60); THYROID STIM HORMONE (HS) 0.063 uIU/ml (0.358-4.75); TOTAL PROTEIN 8.5 gm/dL (6.4-8.2)
== END | disposition home or self-care (01) ==
LOC: LAB 08:36 → CARD 09:00
DX: E11.9 Type 2 diabetes mellitus without complications (principal); I10 Essential (primary) hypertension; E03.9 Hypothyroidism, unspecified; J44.1 Chronic obstructive pulmonary disease with (acute) exacerbation; R00.2 Palpitations

== ENCOUNTER 2017-05-05 17:59 | Emergency (ER) | payer OTHER ==
[~2017-05-05] VITALS: Ht 157.4 cm; Wt 99.8 kg
[2017-05-05 18:27] LABS: BASO # 0.1 10*3/uL (0.0-0.1); BASO % 0.4 % (0.0-1.0); EOS # 0.3 10*3/uL (0.0-0.4); EOS % 2.9 % (1.0-4.0); HEMATOCRIT 41.7 % (37.0-47.0); HEMOGLOBIN 13.9 g/dl (12.0-16.0); LYMPH # 3.8 10*3/uL (1.3-4.4); LYMPH % 32.1 % (27.0-41.0); MEAN CELL VOLUME 78.8 fl (81.0-99.0); MEAN CORPUSCULAR HGB 26.3 pg (27.0-31.0); MEAN CORPUSCULAR HGB CONC 33.3 g/dl (33.0-37.0); MEAN PLATELET VOLUME 11.3 fl (9.6-12.3); MONO # 0.7 10*3/uL (0.1-1.0); MONO % 6.1 % (3.0-9.0); NEUT # 6.9 10*3/uL (2.3-7.9); PLATELET COUNT AUTOMATED 313 10*3/uL (130-400); RED BLOOD COUNT 5.29 10*6/uL (4.10-5.10); RED CELL DISTRI WIDTH 13.6 % (0-14.5); WHITE BLOOD COUNT 11.9 10*3/uL (4.8-10.8)
[2017-05-05 18:38] LABS: ACT PARTIAL THROMBO TIME 22.1 SECONDS (20.8-31.5); INTERNATIONAL NORM RATIO 0.9 (2.0-3.5)
[2017-05-05 18:45] LABS: ALBUMIN 3.5 gm/dl (3.1-4.5); ALKALINE PHOSPHATASE 177 U/L (45-117); BUN 14 mg/dl (7-24); CHLORIDE 100 mmol/L (98-107); POTASSIUM 3.9 mmol/L (3.5-5.1); SGOT/AST 28 IU/L (3-35); SGPT/ALT 40 U/L (12-78); SODIUM 137 mmol/L (136-145)
[2017-05-05 18:46] LABS: TROPONIN I < 0.015 ng/ml (<0.045)
[2017-05-05] MEDS ORDERED: HYDROXYZINE HCL25 MG PO (20:59)
== END 2017-05-05 22:11 | disposition home or self-care (01) ==
LOC: ED 17:59
PROVIDERS: Student in an Organized Health Care Education/Training Program
DX: F41.9 Anxiety disorder, unspecified (principal); R07.9 Chest pain, unspecified; F17.200 Nicotine dependence, unspecified, uncomplicated; Z88.1 Allergy status to other antibiotic agents; Z88.6 Allergy status to analgesic agent; Z88.8 Allergy status to other drugs, medicaments and biological substances; Z79.899 Other long term (current) drug therapy

== ENCOUNTER 2017-05-27 10:45 | Emergency (ER) | payer OTHER ==
[~2017-05-27] VITALS: Ht 157.4 cm; Wt 93.4 kg
[~2017-05-27 10:45] MED LIST changes: +HYDROXYZINE HCL25 MG PO
[2017-05-27 11:07] LABS: BASO % 0.4 % (0.0-1.0); EOS # 0.3 10*3/uL (0.0-0.4); HEMATOCRIT 42.1 % (37.0-47.0); HEMOGLOBIN 13.8 g/dl (12.0-16.0); LYMPH # 3.3 10*3/uL (1.3-4.4); LYMPH % 34.9 % (27.0-41.0); MEAN CELL VOLUME 77.1 fl (81.0-99.0); MEAN CORPUSCULAR HGB 25.3 pg (27.0-31.0); MEAN CORPUSCULAR HGB CONC 32.8 g/dl (33.0-37.0); MEAN PLATELET VOLUME 11.6 fl (9.6-12.3); MONO # 0.6 10*3/uL (0.1-1.0); MONO % 5.9 % (3.0-9.0); NEUT # 5.2 10*3/uL (2.3-7.9); NEUT % 55.4 % (47.0-73.0); PLATELET COUNT AUTOMATED 264 10*3/uL (130-400); RED BLOOD COUNT 5.46 10*6/uL (4.10-5.10); RED CELL DISTRI WIDTH 13.7 % (0-14.5); WHITE BLOOD COUNT 9.4 10*3/uL (4.8-10.8)
[2017-05-27 11:16] LABS: ACT PARTIAL THROMBO TIME 21.6 SECONDS (20.8-31.5); INTERNATIONAL NORM RATIO 0.9 (2.0-3.5)
[2017-05-27 11:27] LABS: ALBUMIN 3.8 gm/dl (3.1-4.5); ALKALINE PHOSPHATASE 154 U/L (45-117); BUN 11 mg/dl (7-24); CHLORIDE 104 mmol/L (98-107); CREATININE 0.96 mg/dL (0.55-1.02); POTASSIUM 4.2 mmol/L (3.5-5.1); SGOT/AST 25 IU/L (3-35); SGPT/ALT 33 U/L (12-78); SODIUM 138 mmol/L (136-145)
[2017-05-27 11:29] LABS: TROPONIN I < 0.015 ng/ml (<0.045)
== END 2017-05-27 14:51 | disposition short-term general hospital (02) ==
LOC: ED 10:45
PROVIDERS: Nurse Practitioner Family
DX: R41.82 Altered mental status, unspecified (principal); J44.9 Chronic obstructive pulmonary disease, unspecified; E11.40 Type 2 diabetes mellitus with diabetic neuropathy, unspecified; K21.9 Gastro-esophageal reflux disease without esophagitis; I10 Essential (primary) hypertension; E03.9 Hypothyroidism, unspecified; E66.9 Obesity, unspecified; E78.2 Mixed hyperlipidemia; Z90.710 Acquired absence of both cervix and uterus; Z90.49 Acquired absence of other specified parts of digestive tract; Z68.39 Body mass index [BMI] 39.0-39.9, adult; Z98.890 Other specified postprocedural states; Z98.51 Tubal ligation status; Z88.1 Allergy status to other antibiotic agents; Z88.5 Allergy status to narcotic agent; Z79.899 Other long term (current) drug therapy

== ENCOUNTER 2017-07-27 23:32 | Emergency (ER) | payer OTHER ==
[~2017-07-27] VITALS: Ht 157.4 cm; Wt 93.9 kg
[2017-07-28 00:25] LABS: BASO % 0.3 % (0.0-1.0); EOS # 0.3 10*3/uL (0.0-0.4); EOS % 2.5 % (1.0-4.0); HEMATOCRIT 39.7 % (37.0-47.0); HEMOGLOBIN 12.9 g/dl (12.0-16.0); LYMPH % 32.2 % (27.0-41.0); MEAN CELL VOLUME 79.6 fl (81.0-99.0); MEAN CORPUSCULAR HGB 25.9 pg (27.0-31.0); MEAN CORPUSCULAR HGB CONC 32.5 g/dl (33.0-37.0); MONO # 0.9 10*3/uL (0.1-1.0); MONO % 7.1 % (3.0-9.0); NEUT # 7.1 10*3/uL (2.3-7.9); PLATELET COUNT AUTOMATED 273 10*3/uL (130-400); RED BLOOD COUNT 4.99 10*6/uL (4.10-5.10); RED CELL DISTRI WIDTH 14.5 % (0-14.5); WHITE BLOOD COUNT 12.4 10*3/uL (4.8-10.8)
[2017-07-28 00:35] LABS: ACT PARTIAL THROMBO TIME 21.2 SECONDS (20.8-31.5); INTERNATIONAL NORM RATIO 0.9 (2.0-3.5)
[2017-07-28 00:41] LABS: ALBUMIN 3.5 gm/dl (3.1-4.5); ALKALINE PHOSPHATASE 176 U/L (45-117); BUN 16 mg/dl (7-24); CHLORIDE 105 mmol/L (98-107); CREATININE 0.96 mg/dL (0.55-1.02); LIPASE 199 U/L (73-393); SGOT/AST 44 IU/L (3-35); SGPT/ALT 50 U/L (12-78); SODIUM 139 mmol/L (136-145); TOTAL PROTEIN 7.7 gm/dL (6.4-8.2)
[2017-07-28 00:43] LABS: TROPONIN I < 0.015 ng/ml (<0.045)
[2017-07-28] MEDS ORDERED: AUGMENTIN 875-875 MG PO (01:09)
== END 2017-07-28 01:26 | disposition home or self-care (01) ==
LOC: ED 23:32
PROVIDERS: Nurse Practitioner Family
DX: J06.9 Acute upper respiratory infection, unspecified (principal); H66.93 Otitis media, unspecified, bilateral; J44.9 Chronic obstructive pulmonary disease, unspecified; E03.9 Hypothyroidism, unspecified; E78.2 Mixed hyperlipidemia; K21.9 Gastro-esophageal reflux disease without esophagitis; I10 Essential (primary) hypertension; E66.9 Obesity, unspecified; M19.90 Unspecified osteoarthritis, unspecified site; I50.30 Unspecified diastolic (congestive) heart failure; E11.40 Type 2 diabetes mellitus with diabetic neuropathy, unspecified; F17.200 Nicotine dependence, unspecified, uncomplicated; Z88.1 Allergy status to other antibiotic agents; Z88.6 Allergy status to analgesic agent; Z88.8 Allergy status to other drugs, medicaments and biological substances; Z79.899 Other long term (current) drug therapy; Z68.39 Body mass index [BMI] 39.0-39.9, adult

== ENCOUNTER 2017-08-04 20:34 | Emergency (ER) | payer OTHER ==
[~2017-08-04] VITALS: Ht 167.6 cm; Wt 90.7 kg
[~2017-08-04 20:34] MED LIST changes: +AUGMENTIN 875-875 MG PO
[2017-08-04 21:13] LABS: BASO # 0.1 10*3/uL (0.0-0.1); BASO % 0.4 % (0.0-1.0); EOS # 0.3 10*3/uL (0.0-0.4); EOS % 2.2 % (1.0-4.0); HEMATOCRIT 40.6 % (37.0-47.0); HEMOGLOBIN 13.1 g/dl (12.0-16.0); LYMPH # 3.7 10*3/uL (1.3-4.4); LYMPH % 30.5 % (27.0-41.0); MEAN CELL VOLUME 80.4 fl (81.0-99.0); MEAN CORPUSCULAR HGB 25.9 pg (27.0-31.0); MEAN CORPUSCULAR HGB CONC 32.3 g/dl (33.0-37.0); MEAN PLATELET VOLUME 11.6 fl (9.6-12.3); MONO # 0.8 10*3/uL (0.1-1.0); MONO % 6.5 % (3.0-9.0); NEUT # 7.4 10*3/uL (2.3-7.9); NEUT % 59.8 % (47.0-73.0); PLATELET COUNT AUTOMATED 272 10*3/uL (130-400); RED BLOOD COUNT 5.05 10*6/uL (4.10-5.10); RED CELL DISTRI WIDTH 14.5 % (0-14.5); WHITE BLOOD COUNT 12.3 10*3/uL (4.8-10.8)
[2017-08-04 21:24] LABS: INTERNATIONAL NORM RATIO 0.9 (2.0-3.5)
[2017-08-04 21:28] LABS: ALBUMIN 3.8 gm/dl (3.1-4.5); ALKALINE PHOSPHATASE 154 U/L (45-117); BUN 17 mg/dl (7-24); CHLORIDE 107 mmol/L (98-107); CREATININE 1.43 mg/dL (0.55-1.02); POTASSIUM 3.8 mmol/L (3.5-5.1); SGOT/AST 30 IU/L (3-35); SGPT/ALT 39 U/L (12-78); SODIUM 143 mmol/L (136-145); TOTAL PROTEIN 7.5 gm/dL (6.4-8.2); TROPONIN I < 0.015 ng/ml (<0.045)
[2017-08-04 21:48] LABS: BILIRUBIN NEGATIVE (NEGATIVE); BLOOD NEGATIVE (NEGATIVE); CLARITY CLEAR (CLEAR); COLOR YELLOW (YELLOW); GLUCOSE NEGATIVE (NEGATIVE); KETONE NEGATIVE (NEGATIVE); LEUKO ESTERASE NEGATIVE (NEGATIVE); NITRITE NEGATIVE (NEGATIVE); PH 5.5 (5.0-9.0); UROBILINOGEN 0.2 E.U./dl (0.2-1.0)
== END 2017-08-04 23:29 | disposition left against medical advice (07) ==
LOC: ED 20:34
PROVIDERS: Emergency Medicine
DX: G45.9 Transient cerebral ischemic attack, unspecified (principal); J44.9 Chronic obstructive pulmonary disease, unspecified; E11.40 Type 2 diabetes mellitus with diabetic neuropathy, unspecified; I11.0 Hypertensive heart disease with heart failure; I50.9 Heart failure, unspecified; K21.9 Gastro-esophageal reflux disease without esophagitis; M19.90 Unspecified osteoarthritis, unspecified site; E66.9 Obesity, unspecified; Z68.39 Body mass index [BMI] 39.0-39.9, adult; Z90.89 Acquired absence of other organs; Z98.890 Other specified postprocedural states; Z88.1 Allergy status to other antibiotic agents; Z88.5 Allergy status to narcotic agent; Z87.891 Personal history of nicotine dependence; Z90.710 Acquired absence of both cervix and uterus; Z90.49 Acquired absence of other specified parts of digestive tract; Z98.51 Tubal ligation status; Z79.899 Other long term (current) drug therapy

== ENCOUNTER 2017-09-24 15:00 | Emergency (ER) | payer OTHER ==
[~2017-09-24] VITALS: Ht 157.4 cm; Wt 89.8 kg
[2017-09-24] MEDS ORDERED: CYCLOBENZAPRINE10 MG PO (16:19)
[2017-09-24] MEDS ORDERED: NAPROSYN500 MG PO (16:19)
== END 2017-09-24 16:10 | disposition home or self-care (01) ==
LOC: ED 15:00
DX: G89.29 Other chronic pain (principal); M25.551 Pain in right hip; Z88.1 Allergy status to other antibiotic agents; Z88.6 Allergy status to analgesic agent; Z88.8 Allergy status to other drugs, medicaments and biological substances; Z79.899 Other long term (current) drug therapy; Z87.891 Personal history of nicotine dependence

== ENCOUNTER → 2017-11-27 | Outpatient (CLI) | payer OTHER ==
[~2017-11-27] MED LIST changes: +ASPIRIN325 M2 PO; +GLIPIZIDE5 MG PO; +LEVOTHYROXINE200 MC2 PO; +METOPROLOL SUC100 M2 PO; +MOTRIN IB200 M1 PO; +MUCINEX1200 M1 PO; +NAPROSYN500 MG PO; +REQUIP0.5 MG PO; +Synthroid,Lev200 MCG PO; +TRULICITY0.75 MG/0. SC; +VITAMIN D32000 UNIT PO; +ZOLOFT50 MG PO
== END | disposition home or self-care (01) ==
LOC: MAMMO 11-12 15:40
DX: Z12.31 Encounter for screening mammogram for malignant neoplasm of breast (principal)

== ENCOUNTER 2017-12-19 12:28 | Emergency (ER) | payer OTHER ==
[~2017-12-19] VITALS: Ht 157.4 cm; Wt 90.7 kg
--- NOTE | ~2017-12-19 | EKG ---
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
[~2017-12-19 12:28] MED LIST changes: -LEVOTHYROXINE200 MC2 PO; -MUCINEX1200 M1 PO; -VITAMIN D32000 UNIT PO
[2017-12-19 14:03] LABS: BASO % 0.4 % (0.0-1.0); EOS # 0.3 10*3/uL (0.0-0.4); EOS % 3.1 % (1.0-4.0); HEMATOCRIT 40.7 % (37.0-47.0); HEMOGLOBIN 13.5 g/dl (12.0-16.0); LYMPH # 2.5 10*3/uL (1.3-4.4); LYMPH % 26.1 % (27.0-41.0); MEAN CELL VOLUME 77.7 fl (81.0-99.0); MEAN CORPUSCULAR HGB 25.8 pg (27.0-31.0); MEAN CORPUSCULAR HGB CONC 33.2 g/dl (33.0-37.0); MEAN PLATELET VOLUME 11.4 fl (9.6-12.3); MONO # 0.8 10*3/uL (0.1-1.0); MONO % 8.3 % (3.0-9.0); NEUT # 5.8 10*3/uL (2.3-7.9); NEUT % 61.6 % (47.0-73.0); PLATELET COUNT AUTOMATED 245 10*3/uL (130-400); RED BLOOD COUNT 5.24 10*6/uL (4.10-5.10); RED CELL DISTRI WIDTH 14.3 % (0-14.5); WHITE BLOOD COUNT 9.4 10*3/uL (4.8-10.8)
[2017-12-19 14:23] LABS: ALBUMIN 3.7 gm/dl (3.1-4.5); ALKALINE PHOSPHATASE 164 U/L (45-117); BUN 10 mg/dl (7-24); CHLORIDE 108 mmol/L (98-107); CREATININE 0.78 mg/dL (0.55-1.02); SGOT/AST 34 IU/L (3-35); SGPT/ALT 41 U/L (12-78); SODIUM 143 mmol/L (136-145); TOTAL PROTEIN 7.5 gm/dL (6.4-8.2)
[2017-12-19] MEDS ORDERED: MUCINEX1200 M1 PO (15:28)
[2017-12-19] MEDS ORDERED: FLONASE ALLERG9.9 ML NAS (15:28)
[2017-12-19] MEDS ORDERED: AUGMENTIN 875875 MG PO (15:28)
[2017-12-19] MEDS ORDERED: PREDNISONE50 MG PO (15:28)
[2017-12-19] MEDS ORDERED: PROAIR HFA8.5 GM INH (15:28)
== END 2017-12-19 15:34 | disposition home or self-care (01) ==
LOC: ED 12:28
PROVIDERS: Nurse Practitioner Family
DX: J06.9 Acute upper respiratory infection, unspecified (principal); J20.9 Acute bronchitis, unspecified; J04.0 Acute laryngitis; H92.03 Otalgia, bilateral; E11.9 Type 2 diabetes mellitus without complications; J44.9 Chronic obstructive pulmonary disease, unspecified; Z86.718 Personal history of other venous thrombosis and embolism; I10 Essential (primary) hypertension; Z87.891 Personal history of nicotine dependence; Z88.1 Allergy status to other antibiotic agents; Z88.6 Allergy status to analgesic agent; Z88.8 Allergy status to other drugs, medicaments and biological substances; Z79.899 Other long term (current) drug therapy; Z79.82 Long term (current) use of aspirin

== ENCOUNTER 2018-01-12 15:25 | Emergency (ER) | payer OTHER ==
[~2018-01-12] VITALS: Ht 157.4 cm; Wt 120.2 kg
--- NOTE | ~2018-01-12 | EKG ---
[place], [place] ELECTROCARDIOGRAM REPORT NAME: TEREZA OROPEZA UNIT #: [id number] ROOM: DOCTOR: [facility] DRAFT REPORT BIRTHDATE: [birth year] [facility] Test Date: 2018-01-12 Test Time: 15:30:06 Pat Name: TEREZA OROPEZA Department: EKG Room: [facility] Gender: F Joint Setter: Migdalia Arenas : 1965 Requested By: ADRIEL JACKMAN Order Number: [id number] Reading MD: Jayesh Solis MD Measurements Intervals [place] Rate: 72 P: 65 ME: 155 QRS: 110 QRSD: 95 T: 67 QT: 393 QTc: 431 Interpretive Statements Sinus rhythm Right axis deviation Compared to ECG 12/19/2017 14:02:59 No significant change Electronically Signed On 01-12-2018 16:41:21 PST by Jayesh Solis MD CM:EKGRPT:ELECTROCARDIOGRAM REPORT 1530 1641 ADRIEL YEBOAH DRAFT REPORT ADRIEL JACKMAN M.D.
[~2018-01-12 15:25] MED LIST changes: +MUCINEX1200 M1 PO
[2018-01-12] MEDS ORDERED: LEVOTHYROXINE200 MC2 PO (15:39)
[2018-01-12] MEDS ORDERED: LISINOPRIL20 MG PO (15:39)
[2018-01-12] MEDS ORDERED: GLIPIZIDE5 MG PO (15:40)
[2018-01-12] MEDS ORDERED: VITAMIN D32000 UNIT PO (15:40)
[2018-01-12] MEDS ORDERED: ASPIRIN325 M2 PO (15:41)
[2018-01-12 15:47] LABS: BASO # 0.1 10*3/uL (0.0-0.1); BASO % 0.4 % (0.0-1.0); EOS # 0.3 10*3/uL (0.0-0.4); EOS % 1.6 % (1.0-4.0); HEMATOCRIT 39.9 % (37.0-47.0); HEMOGLOBIN 13.1 g/dl (12.0-16.0); LYMPH # 4.1 10*3/uL (1.3-4.4); MEAN CELL VOLUME 79.3 fl (81.0-99.0); MEAN CORPUSCULAR HGB CONC 32.8 g/dl (33.0-37.0); MEAN PLATELET VOLUME 10.6 fl (9.6-12.3); MONO % 6.1 % (3.0-9.0); NEUT # 10.8 10*3/uL (2.3-7.9); NEUT % 66.5 % (47.0-73.0); PLATELET COUNT AUTOMATED 268 10*3/uL (130-400); RED BLOOD COUNT 5.03 10*6/uL (4.10-5.10); RED CELL DISTRI WIDTH 14.9 % (0-14.5); WHITE BLOOD COUNT 16.3 10*3/uL (4.8-10.8)
[2018-01-12 15:57] LABS: ACT PARTIAL THROMBO TIME 20.7 SECONDS (20.8-31.5); INTERNATIONAL NORM RATIO 0.9 (2.0-3.5)
[2018-01-12 16:07] LABS: ALBUMIN 3.3 gm/dl (3.1-4.5); ALKALINE PHOSPHATASE 170 U/L (45-117); BUN 25 mg/dl (7-24); CHLORIDE 106 mmol/L (98-107); CREATININE 0.84 mg/dL (0.55-1.02); POTASSIUM 3.8 mmol/L (3.5-5.1); SGOT/AST 11 IU/L (3-35); SGPT/ALT 23 U/L (12-78); SODIUM 142 mmol/L (136-145); TOTAL PROTEIN 7.3 gm/dL (6.4-8.2)
[2018-01-12 16:16] LABS: TROPONIN I < 0.015 ng/ml (<0.045)
[2018-01-12] MEDS ORDERED: NAPROSYN500 MG PO (16:46)
== END 2018-01-12 16:52 | disposition home or self-care (01) ==
LOC: ED 15:25
PROVIDERS: Emergency Medicine
DX: M79.18 Myalgia, other site (principal); R07.9 Chest pain, unspecified; R06.02 Shortness of breath; G89.29 Other chronic pain; J44.9 Chronic obstructive pulmonary disease, unspecified; E11.40 Type 2 diabetes mellitus with diabetic neuropathy, unspecified; I11.0 Hypertensive heart disease with heart failure; I50.30 Unspecified diastolic (congestive) heart failure; K21.9 Gastro-esophageal reflux disease without esophagitis; E03.9 Hypothyroidism, unspecified; E78.2 Mixed hyperlipidemia; E66.9 Obesity, unspecified; Z68.30 Body mass index [BMI] 30.0-30.9, adult; Z79.82 Long term (current) use of aspirin; Z88.1 Allergy status to other antibiotic agents; Z88.5 Allergy status to narcotic agent; Z88.8 Allergy status to other drugs, medicaments and biological substances; Z79.84 Long term (current) use of oral hypoglycemic drugs; Z79.899 Other long term (current) drug therapy; Z90.710 Acquired absence of both cervix and uterus; Z90.49 Acquired absence of other specified parts of digestive tract; Z87.891 Personal history of nicotine dependence

== ENCOUNTER 2018-02-12 11:36 | Emergency (ER) | payer OTHER ==
[~2018-02-12] VITALS: Ht 157.4 cm; Wt 93.9 kg
[~2018-02-12 11:36] MED LIST changes: +LEVOTHYROXINE200 MC2 PO; +VITAMIN D32000 UNIT PO
[2018-02-12] MEDS ORDERED: AUGMENTIN 875875 MG PO (11:53)
== END 2018-02-12 14:50 | disposition home or self-care (01) ==
LOC: ED 11:36
DX: J03.00 Acute streptococcal tonsillitis, unspecified (principal); H92.02 Otalgia, left ear; Z88.1 Allergy status to other antibiotic agents; Z88.5 Allergy status to narcotic agent; Z88.8 Allergy status to other drugs, medicaments and biological substances; Z79.899 Other long term (current) drug therapy; Z79.82 Long term (current) use of aspirin; Z79.84 Long term (current) use of oral hypoglycemic drugs; Z90.710 Acquired absence of both cervix and uterus; Z90.49 Acquired absence of other specified parts of digestive tract; Z87.891 Personal history of nicotine dependence

== ENCOUNTER → 2018-04-09 | Day surgery (SDC) | payer OTHER ==
[~2018-04-09] MED LIST changes: +HYDROCHLOROTHIA25 M1 PO; +METOPROLOL SUC100 M1 PO; +MUCINEX D ER 11 EACH PO; +NAPROXEN500 MG PO; +PREDNISONE5 MG PO; +PROVENTIL HFA6.7 GM INH; +TESSALON PERLE100 MG PO
--- NOTE | ~2018-04-09 | O ---
[place], [place] OPERATIVE NOTE NAME: TEREZA OROPEZA UNIT #: [id number] ROOM: DOCTOR: MAYRA ARREOLA MD BIRTHDATE: [birth year] DOS: 04/09/2018 GASTROENDOSCOPIC REPORT INDICATIONS: A 52-year-old patient who was presented with chief complaint of colonic screening, undergoing investigation. FAMILY HISTORY: Uncle with colonic carcinoma. ALLERGIES: No known medication. PAST SURGICAL HISTORY: Hysterectomy, cholecystectomy, CABG. PAST MEDICAL HISTORY: Diabetes mellitus, hypertension, hypothyroidism. SOCIAL HISTORY: Stopped smoking a year ago. Rare alcohol consumption. PROCEDURE: Today's procedure part of investigation is colonoscopy. PREMEDICATION: Propofol. SCOPE: Olympus forward-viewing colonoscope 10L video. REPORT: After putting the patient in left lateral position and application of lubricant to the scope, the scope was introduced. Thereafter, under direct visualization, advanced through the length of colon without difficulty. Base of cecum explored; however, there was visualization limited only to 50% detail due to the presence of semi-stool all along the length of colon. Retained stool hinders visualization. Therefore, the scope was gradually withdrawn despite water pressure lavage. The patient extubated, tolerated the procedure well. IMPRESSION: Colonoscopy, retained stool. PLAN AND DISCUSSION: Since this is a colonic screening episode as well as family history of colonic carcinoma, I am going to reschedule her in 48 hours for another colonoscopy after another colonoscopy prep will be given. [place], [place] OPERATIVE NOTE NAME: TEREZA OROPEZA UNIT #: [id number] ROOM: DOCTOR: MAYRA ARREOLA MD BIRTHDATE: [birth year] MAYRA ARREOLA MD CM:OPRECORD:OPERATIVE NOTE 0925 1154 MAYRA ARREOLA MD 05/14/18 1616 JOANIE NEW MIS.R
== END | disposition home or self-care (01) ==
LOC: SDC 12:00
DX: Z12.11 Encounter for screening for malignant neoplasm of colon (principal); I10 Essential (primary) hypertension; E11.9 Type 2 diabetes mellitus without complications; I25.10 Atherosclerotic heart disease of native coronary artery without angina pectoris; F41.9 Anxiety disorder, unspecified; J45.909 Unspecified asthma, uncomplicated; F32.9 Major depressive disorder, single episode, unspecified; E03.9 Hypothyroidism, unspecified; Z90.710 Acquired absence of both cervix and uterus; Z95.1 Presence of aortocoronary bypass graft; Z87.891 Personal history of nicotine dependence; Z72.89 Other problems related to lifestyle; Z88.1 Allergy status to other antibiotic agents; Z79.82 Long term (current) use of aspirin; Z79.899 Other long term (current) drug therapy; Z98.890 Other specified postprocedural states; Z87.01 Personal history of pneumonia (recurrent); Z86.73 Personal history of transient ischemic attack (TIA), and cerebral infarction without residual deficits; Z88.8 Allergy status to other drugs, medicaments and biological substances; Z98.51 Tubal ligation status; Z90.49 Acquired absence of other specified parts of digestive tract; Z80.0 Family history of malignant neoplasm of digestive organs

== ENCOUNTER → 2018-04-11 | Day surgery (SDC) | payer OTHER ==
[2018-04-09 08:42] VITALS: BP 118/65
[2018-04-09 09:16] VITALS: BP 136/81
[2018-04-09 09:30] VITALS: BP 115/55
[2018-04-09 09:41] VITALS: BP 114/55
[~2018-04-11] MED LIST changes: -HYDROCHLOROTHIA25 M1 PO; -METOPROLOL SUC100 M1 PO; -MUCINEX D ER 11 EACH PO; -PREDNISONE5 MG PO; -TESSALON PERLE100 MG PO
--- NOTE | ~2018-04-11 | O ---
[place], [place] OPERATIVE NOTE NAME: TEREZA OROPEZA UNIT #: [id number] ROOM: DOCTOR: MAYRA ARREOAL MD BIRTHDATE: [birth year] DOS: 04/11/2018 HISTORY: The patient has presented with a chief complaint of concern about colonic screening, undergoing investigation. The patient presented a few days ago for the same reason. Her colon was not clean. She was sent home and re-prep. ALLERGIES: No known medications. FAMILY HISTORY: Uncle with colon carcinoma. PAST SURGICAL HISTORY: Hysterectomy, cholecystectomy, CABG. PAST MEDICAL HISTORY: Hypertension, hypothyroidism. SOCIAL HISTORY: Smoked up to one year ago. Alcohol rare. PROCEDURE: Today's procedure part of investigation colonoscopy plus polypectomy with a snare. PREMEDICATION: Propofol. SCOPE: Olympus forward-viewing colonoscope 10L video. REPORT: After putting the patient in left lateral position and application of lubricant to the scope, scope was introduced. Thereafter, under direct visualization, advanced through the length of colon without difficulty. Cecum was explored, appendiceal site and by ileocecal valve was defined. Scope was withdrawn back to the sigmoid colon, polypoid lesion with a snare was polypectomized. Sample recovered. Air was suctioned out. The patient was extubated, tolerated the procedure well. IMPRESSION: Colonic polyp at sigmoid colon, status post snare polypectomy. PLAN: High fiber diet. ACTIVITY: Ad anna. FOLLOWUP: Routinely with you in office, p.r.n. visit with us in GI Clinic. [place], [place] OPERATIVE NOTE NAME: TEREZA OROPEZA UNIT #: [id number] ROOM: DOCTOR: MAYRA ARREOLA MD BIRTHDATE: [birth year] MAYRA ARREOLA MD CM:OPRECORD:OPERATIVE NOTE 1218 1307 MAYRA ARREOLA MD 04/11/18 1308 interface
[2018-04-11 11:00] VITALS: BP 144/80
[2018-04-11 12:11] VITALS: BP 113/59
[2018-04-11 12:25] VITALS: BP 120/60
[2018-04-11 12:40] VITALS: BP 119/60
== END | disposition home or self-care (01) ==
LOC: SDC 04-04 14:00
DX: Z12.11 Encounter for screening for malignant neoplasm of colon (principal); Z80.0 Family history of malignant neoplasm of digestive organs; K63.5 Polyp of colon; K21.9 Gastro-esophageal reflux disease without esophagitis; I10 Essential (primary) hypertension; J44.9 Chronic obstructive pulmonary disease, unspecified; E11.9 Type 2 diabetes mellitus without complications; Z79.4 Long term (current) use of insulin; E07.9 Disorder of thyroid, unspecified; Z90.710 Acquired absence of both cervix and uterus; Z90.49 Acquired absence of other specified parts of digestive tract; Z98.890 Other specified postprocedural states; Z98.51 Tubal ligation status; Z88.8 Allergy status to other drugs, medicaments and biological substances; Z95.1 Presence of aortocoronary bypass graft; Z87.891 Personal history of nicotine dependence; Z79.899 Other long term (current) drug therapy

== ENCOUNTER 2018-04-12 16:59 | Inpatient (IN) | payer OTHER ==
[~2018-04-12] VITALS: Ht 157.5 cm; Wt 96.2 kg
--- NOTE | ~2018-04-12 | CON ---
[place], [place] REPORT OF CONSULTATION NAME: TEREZA OROPEZA UNIT #: [id number] ROOM: 412 DOCTOR: NORMA FONTENOT MD BIRTHDATE: [birth year] DOS: 04/13/2018 CARDIOLOGY CONSULTATION REASON FOR CONSULTATION: Chest pain. HISTORY OF PRESENT COMPLAINT: This is a 52-year-old patient with history of hypertension, diabetes, obesity, who came to the Emergency Room with chest pain. She was complaining of her intermittent left-sided chest pains for the past several months. This pain is mostly at rest. She described as soreness in the left upper chest area. Occasionally, it radiates to the left neck, but no associated nausea, diaphoresis, shortness of breath. The pain is intermittent, lasting for a few seconds to minutes, mostly at rest, not related to exertion. She had a stress test in 11/2017, which is unremarkable. She denies anginal chest pains or palpitation. She did have some mild shortness of breath, which is chronic. No palpitation, no dizziness, no nausea, vomiting. No bladder or bowel symptoms. No PND, no orthopnea. No neurologic symptoms. The patient quit smoking a few years ago. REVIEW OF SYSTEMS: Review of the 10 system negative except as mentioned above. PAST MEDICAL HISTORY: 1. Hypertension. 2. Diabetes type 2. 3. Acid reflux. 4. Chronic obstructive pulmonary disease. 5. Cervical radiculopathy. 6. Hypothyroidism. 7. Non-morbid obesity. 8. Vitamin D deficiency. 9. Depression. 10. Anxiety. PAST SURGICAL HISTORY: History of hysterectomy, lumpectomy, cholecystectomy and history of heart surgery long time ago, "repair of some anatomic defect," details unknown. SOCIAL HISTORY: The patient quit smoking, does not drink alcohol, does not use illicit drugs. MEDICATIONS: Reviewed. FAMILY HISTORY: Nil contributory. ALLERGIES TO MEDICATIONS: Reviewed. The patient is allergic to MORPHINE and ERYTHROMYCIN. Her echo from 09/2016 showed normal LV function, mild mitral regurgitation. The stress test in 11/2017 reviewed. [place], [place] REPORT OF CONSULTATION NAME: TEREZA OROPEZA UNIT #: [id number] ROOM: 412 DOCTOR: PO DAS,NORMA RICHARDSONDATE: 67 PHYSICAL EXAMINATION: VITAL SIGNS: Blood pressure 146/58, pulse 71, respiratory rate is 18, weight 91.1 kilos, BMI of 38.8. GENERAL: Alert, comfortable, in no acute distress. HEAD AND NECK: Supple, no distended neck veins, no carotid bruit. Tongue was moist and pharynx clear. CHEST: Symmetrical. The patient had diffuse tenderness across the chest wall on palpation. No palpable thrills. LUNGS: Few scattered rhonchi. Good air entry bilaterally. HEART: Regular rhythm, no S3. Grade 1/6 systolic murmur at the left sternal border. ABDOMEN: Obese, nontender. Bowel sounds normal. EXTREMITIES: Showed trace edema. Distal pulses palpable. SKIN: Warm and dry. No cyanosis, no clubbing. RECTAL: Deferred. GENITOURINARY: Deferred. NEUROLOGIC: Alert, oriented. No focal neurologic deficit. PSYCHIATRIC: The patient is alert, oriented with good mood and affect. REVIEW OF THE DIAGNOSTIC TESTS: Her labs, EKGs and imaging studies reviewed. EKG shows normal sinus rhythm, nonspecific ST changes. Labs including the cardiac troponins are negative x 3. Potassium 3.9, BUN 13, creatinine 0.93. White cell count 11.3 thousand, hemoglobin 13.2, platelets 256,000. IMPRESSION: 1. Chest pain, atypical, myocardial infarction ruled out. 2. Hypertension, relatively stable. 3. Diabetes type [address] Anders. 4. Non-morbid obesity. The patient counseled for diet, exercise and weight loss. 5. Dyslipidemia. 6. Mild mitral regurgitation by echo in 2017, currently stable. RECOMMENDATIONS: No further cardiac testing required. Cardiology sign off and see as needed. No family at bedside at the time of my examination. NORMA FONTENOT MD CM:CONSTR:REPORT OF CONSULTATION 1717 04/14/18 0844 interface
--- NOTE | ~2018-04-12 | WRIGHTHP ---
[place], [place] PATIENT HISTORY AND PHYSICAL EXAM NAME: TEREZA OROPEZA UNIT #: [id number] ROOM: 412 DOCTOR: MIKE THOMPSON MD BIRTHDATE: [birth year] DOS: COMBINED HISTORY AND PHYSICAL AND DISCHARGE SUMMARY HISTORY OF PRESENT ILLNESS: 1. The patient is a 52-year-old female with a past medical history of cardiac stress test in November 2017. The patient was sent over for heart catheterization to [facility] in [place]. 2. History of benign essential hypertension. 3. Hypothyroidism. 4. Type 2 diabetes mellitus. 5. Moderate persistent asthma. 6. Obesity. The patient was admitted when she presented with left-sided chest pains, also going into her neck and head, off and on. The patient admitted and all her cardiac enzymes were negative. The patient was reevaluated by the same Cardiology Group, who performed a heart catheterization on her in November 2017 and was cleared for discharge to home. Benign essential hypertension, blood pressure was monitored, treated and are staying normal. Obesity with BMI of 38.8. 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 Type 2 diabetes mellitus. The patient on glipizide. Blood sugars are monitored and treated and staying normal. Hypothyroidism, replaced with levothyroxine. Benign essential hypertension, treated and controlled. History of coronary artery disease of chilkat vessels as mentioned above. LABORATORY DATA: Cardiac enzymes were negative. White cell count of 11,300, otherwise normal CBC. DISCHARGE MANAGEMENT: Lisinopril 20 mg a day, vitamin D daily, aspirin 325 mg a day, glipizide 5 mg daily, levothyroxine 200 mcg daily and Naprosyn 500 mg b.i.d. p.r.n. Followup in the office with me on Saturday. [place], [place] PATIENT HISTORY AND PHYSICAL EXAM NAME: TEREZA OROPEZA UNIT #: [id number] ROOM: 412 DOCTOR: MIKE THOMPSON MD BIRTHDATE: [birth year] MIKE THOMPSON MD CM:HISPHYS:PATIENT HISTORY AND PHYSICAL EXAMINATION 1623 14 MIKE THOMPSON MD 04/13/181914 interface
--- NOTE | ~2018-04-12 | EKG ---
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
--- NOTE | ~2018-04-12 | EKG ---
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
--- NOTE | ~2018-04-12 | EKG ---
[place], [place] ELECTROCARDIOGRAM REPORT NAME: TEREZA OROPEZA UNIT #: [id number] ROOM: 412 DOCTOR: OBINNA DRAFT REPORT BIRTHDATE: [birth year] [facility] Test Date: 2018-04-12 Test Time: 17:25:59 Pat Name: TEREZA OROPEZA Department: Room: 412 Gender: F [employer]: Gayle Mitchell : 1965 Requested By: ADRIEL JACKMAN Order Number: [id number] Reading MD: Yo Kraus Measurements Intervals [place] Rate: 76 P: [place]: QRS: 111 QRSD: 87 T: 75 QT: 384 QTc: 432 Interpretive Statements Sinus rhythm Right axis deviation Compared to ECG 01/12/2018 15:30:06 Sinus rhythm no longer present Electronically Signed On 04-18-2018 12:08:20 PST by Yo Kraus CM:EKGRPT:ELECTROCARDIOGRAM REPORT 1725 1208 ADRIEL YEBOAH DRAFT REPORT ADRIEL JACKMAN M.D.
[~2018-04-12 16:59] MED LIST changes: -NAPROXEN500 MG PO; -PROVENTIL HFA6.7 GM INH
[2018-04-12 17:01] VITALS: BP 152/81
[2018-04-12 17:34] LABS: BASO % 0.4 % (0.0-1.0); EOS # 0.3 10*3/uL (0.0-0.4); EOS % 2.2 % (1.0-4.0); HEMOGLOBIN 13.2 g/dl (12.0-16.0); LYMPH # 3.3 10*3/uL (1.3-4.4); LYMPH % 28.8 % (27.0-41.0); MEAN CELL VOLUME 81.5 fl (81.0-99.0); MEAN CORPUSCULAR HGB 26.2 pg (27.0-31.0); MEAN CORPUSCULAR HGB CONC 32.2 g/dl (33.0-37.0); MEAN PLATELET VOLUME 11.5 fl (9.6-12.3); MONO # 0.8 10*3/uL (0.1-1.0); MONO % 6.6 % (3.0-9.0); NEUT % 61.6 % (47.0-73.0); PLATELET COUNT AUTOMATED 256 10*3/uL (130-400); RED BLOOD COUNT 5.03 10*6/uL (4.10-5.10); RED CELL DISTRI WIDTH 14.5 % (0-14.5); WHITE BLOOD COUNT 11.3 10*3/uL (4.8-10.8)
[2018-04-12 17:47] LABS: ACT PARTIAL THROMBO TIME 21.4 SECONDS (20.8-31.5); INTERNATIONAL NORM RATIO 0.9 (2.0-3.5)
[2018-04-12 17:49] LABS: ALBUMIN 3.7 gm/dl (3.1-4.5); ALKALINE PHOSPHATASE 172 U/L (45-117); BUN 13 mg/dl (7-24); CHLORIDE 107 mmol/L (98-107); CREATININE 0.93 mg/dL (0.55-1.02); POTASSIUM 3.9 mmol/L (3.5-5.1); SGOT/AST 21 IU/L (3-35); SGPT/ALT 28 U/L (12-78); SODIUM 142 mmol/L (136-145); TOTAL PROTEIN 8.1 gm/dL (6.4-8.2)
[2018-04-12 17:50] LABS: TROPONIN I < 0.015 ng/ml (<0.045)
[2018-04-12 18:08] VITALS: BP 114/57
--- NOTE | 2018-04-12 18:43 | NUR ---
NO BED ASSIGNMENT AT THIS TIME
[2018-04-12 18:50] VITALS: BP 121/67
[2018-04-12 19:10] VITALS: BP 104/74
--- NOTE | 2018-04-12 19:15 | NUR ---
A 52, admitted to , under the services of Dr. JAY DAS,MIKE Buckley with a diagnosis of CHEST PAIN. Chief complaint is CHEST PAIN ON THE LEFT, ABOVE THE CLAVICAL THAT RADIATES INTO THE NECK/HEAD X2 MONTHS. Patient arrived via stretcher from ER. Monitor applied. Initial assessment completed. Vital signs taken and recorded. DR. JAY DAS,MIKE Buckley notified of admission to the unit. Orders received. See assessment for past medical history, medications and allergies. Patient and/or family oriented to unit. [address] visitation policy reviewed. Clothing/patient valuable form completed. DAVID ROBERSON
[2018-04-12 19:45] VITALS: BP 139/59
[2018-04-12] MEDS ORDERED: NAPROXEN500 MG PO (20:57)
--- NOTE | 2018-04-12 21:09 | NUR ---
MESSAGE LEFT WITH DR BLAKE'S ANSWERING SERVICE FOR CONSULT.
[2018-04-13] VITALS: BP 126/60
--- NOTE | 2018-04-13 04:00 | NUR ---
Patient resting quietly with no c/o discomfort. Respirations easy and regular. Vital signs stable. No overt distress. DAVID ROBERSON
--- NOTE | 2018-04-13 07:42 | NUR ---
MEDICATED WITH NAPROXEN ORDERED FOR COMPLAINTS OF LEFT SIDED CHEST PAIN WITH PALPATION.
[2018-04-13 08:00] VITALS: BP 118/64
--- NOTE | 2018-04-13 10:00 | NUR ---
COMPLAINS OF LEFT SIDED CHEST PAIN. TENDER TO TOUCH. RADIATES TO NECK, AND TO TOP OF HEAD. O2 PLACED ON WITH NO RELIEF.
[2018-04-13 12:00] VITALS: BP 146/58
[2018-04-13 16:00] VITALS: BP 141/64
--- NOTE | 2018-04-13 17:46 | NUR ---
Discharge instructions reviewed with patient/family. Patient receptive and verbalizes understanding. Follow-up care arranged. Written instructions given to patient/family. DAVID MUSE
[2018-06-02] MEDS ORDERED: PREDNISONE20 M1 PO (05:04)
[2018-06-02] MEDS ORDERED: TESSALON PERLE100 MG PO (05:04)
[2018-06-17] MEDS ORDERED: AUGMENTIN 875875 MG PO (17:31)
[2018-06-17] MEDS ORDERED: HYDROCHLOROTHIA25 M1 PO (17:32)
[2018-06-17] MEDS ORDERED: METOPROLOL SUC100 M1 PO (17:33)
[2018-06-17] MEDS ORDERED: MUCINEX D ER 11 EACH PO (17:59)
[2018-06-19] MEDS ORDERED: PREDNISONE5 MG PO (09:05)
[2018-06-19] MEDS ORDERED: DOXYCYCLINE100 M3 PO (09:05)
[2018-08-16] MEDS ORDERED: GLIPIZIDE5 MG PO (16:36)
== END 2018-04-13 17:46 | disposition home or self-care (01) | DRG 313 ==
LOC: ED 16:59 → EDHOLD 18:13 → 4E 19:10
PROVIDERS: Emergency Medicine; ADMIT Internal Medicine
DX: R07.89 Other chest pain (principal); I50.32 Chronic diastolic (congestive) heart failure; E03.9 Hypothyroidism, unspecified; E66.9 Obesity, unspecified; J45.909 Unspecified asthma, uncomplicated; I25.10 Atherosclerotic heart disease of native coronary artery without angina pectoris; F41.9 Anxiety disorder, unspecified; G89.29 Other chronic pain; M25.551 Pain in right hip; E11.40 Type 2 diabetes mellitus with diabetic neuropathy, unspecified; I34.0 Nonrheumatic mitral (valve) insufficiency; J44.9 Chronic obstructive pulmonary disease, unspecified; F32.9 Major depressive disorder, single episode, unspecified; I11.0 Hypertensive heart disease with heart failure; K21.9 Gastro-esophageal reflux disease without esophagitis; E78.2 Mixed hyperlipidemia; Z86.73 Personal history of transient ischemic attack (TIA), and cerebral infarction without residual deficits; Z90.710 Acquired absence of both cervix and uterus; Z90.49 Acquired absence of other specified parts of digestive tract; Z98.51 Tubal ligation status; Z88.8 Allergy status to other drugs, medicaments and biological substances; Z88.1 Allergy status to other antibiotic agents; Z88.5 Allergy status to narcotic agent; Z87.891 Personal history of nicotine dependence; Z82.5 Family history of asthma and other chronic lower respiratory diseases; Z68.38 Body mass index [BMI] 38.0-38.9, adult

== ENCOUNTER 2018-04-22 14:55 | Emergency (ER) | payer OTHER ==
[~2018-04-22] VITALS: Ht 157.4 cm; Wt 94.3 kg
[~2018-04-22 14:55] MED LIST changes: +NAPROXEN500 MG PO
[2018-04-22] MEDS ORDERED: PROVENTIL HFA6.7 GM INH (15:02)
[2018-04-22] MEDS ORDERED: PREDNISONE50 MG PO (16:43)
[2018-04-22] MEDS ORDERED: ROBITUSSIN DM 105 ML PO (16:43)
[2018-04-22] MEDS ORDERED: AMOXICILLIN500 M2 PO (16:43)
[2018-06-02] MEDS ORDERED: PREDNISONE20 M1 PO (05:04)
[2018-06-02] MEDS ORDERED: TESSALON PERLE100 MG PO (05:04)
[2018-06-17] MEDS ORDERED: AUGMENTIN 875875 MG PO (17:31)
[2018-06-17] MEDS ORDERED: HYDROCHLOROTHIA25 M1 PO (17:32)
[2018-06-17] MEDS ORDERED: METOPROLOL SUC100 M1 PO (17:33)
[2018-06-17] MEDS ORDERED: MUCINEX D ER 11 EACH PO (17:59)
[2018-06-19] MEDS ORDERED: PREDNISONE5 MG PO (09:05)
[2018-06-19] MEDS ORDERED: DOXYCYCLINE100 M3 PO (09:05)
[2018-08-16] MEDS ORDERED: GLIPIZIDE5 MG PO (16:36)
== END 2018-04-22 16:49 | disposition home or self-care (01) ==
LOC: ED 14:55
DX: J20.9 Acute bronchitis, unspecified (principal); J44.9 Chronic obstructive pulmonary disease, unspecified; Z87.891 Personal history of nicotine dependence; Z90.710 Acquired absence of both cervix and uterus; Z88.1 Allergy status to other antibiotic agents; Z88.5 Allergy status to narcotic agent; Z88.6 Allergy status to analgesic agent; Z79.899 Other long term (current) drug therapy; Z79.82 Long term (current) use of aspirin; Z79.84 Long term (current) use of oral hypoglycemic drugs

== ENCOUNTER 2018-06-03 20:49 | Emergency (ER) | payer OTHER ==
[~2018-06-03] VITALS: Ht 157.4 cm; Wt 96.2 kg
--- NOTE | ~2018-06-03 | EKG ---
[place], [place] ELECTROCARDIOGRAM REPORT NAME: TEREZA OROPEZA UNIT #: [id number] ROOM: DOCTOR: EPIPHANY DRAFT REPORT BIRTHDATE: [birth year] [facility] Test Date: 2018-06-03 Test Time: 21:49:24 Pat Name: TEREZA OROPEZA Department: Room: Gender: F [employer] Engineer: Gayle Mitchell : 1965 Requested By: PEÑA DOUGLAS Order Number: [id number] Reading MD: Damian Cheng MD Measurements Intervals [place] Rate: 77 P: 66 SC: 147 QRS: 104 QRSD: 89 T: 71 QT: 390 QTc: 442 Interpretive Statements Sinus rhythm Probable left atrial enlargement Right axis deviation Compared to ECG 06/02/2018 04:33:17 Atrial premature complex(es) no longer present ` Electronically Signed On 06-05-2018 4:39:43 PDT by Damian Cheng MD CM:EKGRPT:ELECTROCARDIOGRAM REPORT [id number] PEÑA BACA DRAFT REPORT PEÑA DOUGLAS DO
[~2018-06-03 20:49] MED LIST changes: +PROVENTIL HFA6.7 GM INH; +TESSALON PERLE100 MG PO
[2018-06-03 21:58] LABS: BASO % 0.2 % (0.0-1.0); HEMATOCRIT 39.3 % (37.0-47.0); HEMOGLOBIN 12.9 g/dl (12.0-16.0); LYMPH # 2.7 10*3/uL (1.3-4.4); LYMPH % 16.4 % (27.0-41.0); MEAN CELL VOLUME 80.2 fl (81.0-99.0); MEAN CORPUSCULAR HGB 26.3 pg (27.0-31.0); MEAN CORPUSCULAR HGB CONC 32.8 g/dl (33.0-37.0); MONO # 0.8 10*3/uL (0.1-1.0); MONO % 4.5 % (3.0-9.0); NEUT # 13.1 10*3/uL (2.3-7.9); NEUT % 78.2 % (47.0-73.0); PLATELET COUNT AUTOMATED 336 10*3/uL (130-400); RED CELL DISTRI WIDTH 15.4 % (0-14.5); WHITE BLOOD COUNT 16.7 10*3/uL (4.8-10.8)
[2018-06-03 22:26] LABS: ALBUMIN 3.2 gm/dl (3.1-4.5); ALKALINE PHOSPHATASE 185 U/L (45-117); BUN 14 mg/dl (7-24); CHLORIDE 103 mmol/L (98-107); POTASSIUM 4.2 mmol/L (3.5-5.1); SGOT/AST 21 IU/L (3-35); SGPT/ALT 41 U/L (12-78); SODIUM 138 mmol/L (136-145); TOTAL PROTEIN 7.6 gm/dL (6.4-8.2)
[2018-06-03 22:29] LABS: TROPONIN I < 0.015 ng/ml (<0.045)
[2018-06-17] MEDS ORDERED: AUGMENTIN 875875 MG PO (17:31)
[2018-06-17] MEDS ORDERED: HYDROCHLOROTHIA25 M1 PO (17:32)
[2018-06-17] MEDS ORDERED: METOPROLOL SUC100 M1 PO (17:33)
[2018-06-17] MEDS ORDERED: MUCINEX D ER 11 EACH PO (17:59)
[2018-06-19] MEDS ORDERED: PREDNISONE5 MG PO (09:05)
[2018-06-19] MEDS ORDERED: DOXYCYCLINE100 M3 PO (09:05)
[2018-08-16] MEDS ORDERED: GLIPIZIDE5 MG PO (16:36)
== END 2018-06-03 22:45 | disposition home or self-care (01) ==
LOC: ED 20:49
PROVIDERS: Student in an Organized Health Care Education/Training Program
DX: J40 Bronchitis, not specified as acute or chronic (principal); I11.0 Hypertensive heart disease with heart failure; I50.30 Unspecified diastolic (congestive) heart failure; J44.9 Chronic obstructive pulmonary disease, unspecified; K21.9 Gastro-esophageal reflux disease without esophagitis; E78.2 Mixed hyperlipidemia; E03.9 Hypothyroidism, unspecified; M19.90 Unspecified osteoarthritis, unspecified site; E11.9 Type 2 diabetes mellitus without complications; E66.9 Obesity, unspecified; E11.40 Type 2 diabetes mellitus with diabetic neuropathy, unspecified; Z88.1 Allergy status to other antibiotic agents; Z88.6 Allergy status to analgesic agent; Z88.8 Allergy status to other drugs, medicaments and biological substances; Z79.899 Other long term (current) drug therapy; Z79.82 Long term (current) use of aspirin; Z86.718 Personal history of other venous thrombosis and embolism; Z68.39 Body mass index [BMI] 39.0-39.9, adult; Z87.891 Personal history of nicotine dependence

== ENCOUNTER 2018-09-10 16:37 | Emergency (ER) | payer OTHER ==
[~2018-09-10] VITALS: Ht 157.4 cm; Wt 87.5 kg
--- NOTE | ~2018-09-10 | EKG ---
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
[~2018-09-10 16:37] MED LIST changes: +HYDROCHLOROTHIA25 M1 PO; +METOPROLOL SUC100 M1 PO; +MUCINEX D ER 11 EACH PO; +PREDNISONE5 MG PO
[2018-09-10 17:47] LABS: BASO # 0.1 10*3/uL (0.0-0.1); BASO % 0.4 % (0.0-1.0); EOS # 0.5 10*3/uL (0.0-0.4); EOS % 3.3 % (1.0-4.0); HEMATOCRIT 41.2 % (37.0-47.0); LYMPH # 4.5 10*3/uL (1.3-4.4); LYMPH % 33.5 % (27.0-41.0); MEAN CELL VOLUME 80.3 fl (81.0-99.0); MEAN CORPUSCULAR HGB 25.3 pg (27.0-31.0); MEAN CORPUSCULAR HGB CONC 31.6 g/dl (33.0-37.0); MEAN PLATELET VOLUME 12.1 fl (9.6-12.3); MONO % 7.3 % (3.0-9.0); NEUT # 7.4 10*3/uL (2.3-7.9); NEUT % 55.1 % (47.0-73.0); PLATELET COUNT AUTOMATED 284 10*3/uL (130-400); RED BLOOD COUNT 5.13 10*6/uL (4.10-5.10); WHITE BLOOD COUNT 13.4 10*3/uL (4.8-10.8)
[2018-09-10 18:03] LABS: BUN 14 mg/dl (7-24); CHLORIDE 109 mmol/L (98-107); CREATININE 0.92 mg/dL (0.55-1.02); POTASSIUM 4.1 mmol/L (3.5-5.1); SODIUM 140 mmol/L (136-145)
[2018-09-10 18:04] LABS: TROPONIN I < 0.015 ng/ml (<0.045)
== END 2018-09-10 19:04 | disposition home or self-care (01) ==
LOC: ED 16:37
PROVIDERS: Emergency Medicine
DX: F41.9 Anxiety disorder, unspecified (principal); E11.9 Type 2 diabetes mellitus without complications; K21.9 Gastro-esophageal reflux disease without esophagitis; J44.9 Chronic obstructive pulmonary disease, unspecified; G89.29 Other chronic pain; I11.0 Hypertensive heart disease with heart failure; I50.30 Unspecified diastolic (congestive) heart failure; E11.40 Type 2 diabetes mellitus with diabetic neuropathy, unspecified; E78.2 Mixed hyperlipidemia; E66.9 Obesity, unspecified; Z88.1 Allergy status to other antibiotic agents; Z88.5 Allergy status to narcotic agent; Z88.8 Allergy status to other drugs, medicaments and biological substances; Z79.899 Other long term (current) drug therapy; Z79.84 Long term (current) use of oral hypoglycemic drugs; Z79.82 Long term (current) use of aspirin; Z68.30 Body mass index [BMI] 30.0-30.9, adult; Z86.73 Personal history of transient ischemic attack (TIA), and cerebral infarction without residual deficits; Z90.710 Acquired absence of both cervix and uterus; Z98.61 Coronary angioplasty status; Z90.49 Acquired absence of other specified parts of digestive tract; Z87.891 Personal history of nicotine dependence

== ENCOUNTER 2020-06-09 17:10 | Emergency (ER) | payer OTHER ==
[~2020-06-09] VITALS: Ht 157.4 cm; Wt 92.5 kg
[2020-06-09 19:51] LABS: BASO % 0.3 % (0.0-1.0); EOS # 0.2 10*3/uL (0.0-0.4); EOS % 1.9 % (1.0-4.0); HEMATOCRIT 41.9 % (37.0-47.0); LYMPH # 2.5 10*3/uL (1.3-4.4); LYMPH % 24.4 % (27.0-41.0); MEAN CELL VOLUME 78.3 fl (81.0-99.0); MEAN PLATELET VOLUME 10.8 fl (9.6-12.3); MONO # 0.7 10*3/uL (0.1-1.0); MONO % 6.4 % (3.0-9.0); NEUT # 6.8 10*3/uL (2.3-7.9); NEUT % 66.5 % (47.0-73.0); PLATELET COUNT AUTOMATED 287 10*3/uL (130-400); RED BLOOD COUNT 5.35 10*6/uL (4.10-5.10); RED CELL DISTRI WIDTH 14.7 % (0-14.5); WHITE BLOOD COUNT 10.2 10*3/uL (4.8-10.8)
[2020-06-09 20:03] LABS: ALBUMIN 3.6 gm/dl (3.1-4.5); ALKALINE PHOSPHATASE 149 U/L (45-117); BUN 15 mg/dl (7-24); CHLORIDE 109 mmol/L (98-107); CREATININE 1.11 mg/dL (0.55-1.02); POTASSIUM 4.1 mmol/L (3.5-5.1); SGOT/AST 17 IU/L (3-35); SGPT/ALT 32 U/L (12-78); SODIUM 139 mmol/L (136-145); TOTAL PROTEIN 7.5 gm/dL (6.4-8.2)
== END 2020-06-09 20:30 | disposition home or self-care (01) ==
LOC: ED 17:10
PROVIDERS: Internal Medicine
DX: F41.9 Anxiety disorder, unspecified (principal); E11.65 Type 2 diabetes mellitus with hyperglycemia; I12.9 Hypertensive chronic kidney disease with stage 1 through stage 4 chronic kidney disease, or unspecified chronic kidney disease; E11.22 Type 2 diabetes mellitus with diabetic chronic kidney disease; N18.31 Chronic kidney disease, stage 3a; Z88.8 Allergy status to other drugs, medicaments and biological substances; Z79.899 Other long term (current) drug therapy; Z79.82 Long term (current) use of aspirin; Z90.711 Acquired absence of uterus with remaining cervical stump; Z98.890 Other specified postprocedural states; Z98.51 Tubal ligation status; Z87.891 Personal history of nicotine dependence

== ENCOUNTER 2021-03-05 10:26 | Emergency (ER) | payer OTHER ==
[~2021-03-05] VITALS: Ht 157.4 cm; Wt 93.9 kg
== END 2021-03-05 14:34 | disposition left against medical advice (07) ==
LOC: ED 10:26
DX: R21 Rash and other nonspecific skin eruption (principal); Z53.21 Procedure and treatment not carried out due to patient leaving prior to being seen by health care provider

== ENCOUNTER 2021-07-25 14:55 | Emergency (ER) | payer OTHER ==
[~2021-07-25] VITALS: Ht 152.4 cm; Wt 93.0 kg
[~2021-07-25 14:55] MED LIST changes: +LANTUS SOL100 UNIT/1 SQ; +LIPITOR40 MG PO; +LIPITOR80 MG PO; +METFORMIN XR500 MG PO; +TRULICITY1.5 MG/0.5 SC; +VIBRAMYCIN HYC100 MG PO; +ZESTRIL40 MG PO
[2021-07-25] MEDS ORDERED: AMOXICILLIN500 M2 PO (18:39)
[2021-07-25] MEDS ORDERED: DIFLUCAN150 MG PO (18:39)
== END 2021-07-25 18:54 | disposition home or self-care (01) ==
LOC: ED 14:55
DX: J32.8 Other chronic sinusitis (principal); Z20.822 Contact with and (suspected) exposure to COVID-19; Z88.1 Allergy status to other antibiotic agents; Z88.8 Allergy status to other drugs, medicaments and biological substances; Z79.899 Other long term (current) drug therapy; Z90.49 Acquired absence of other specified parts of digestive tract; Z90.710 Acquired absence of both cervix and uterus; Z98.890 Other specified postprocedural states; Z98.51 Tubal ligation status; Z87.891 Personal history of nicotine dependence

== ENCOUNTER 2024-10-21 14:52 | Emergency (ER) | payer OTHER ==
[~2024-10-21] VITALS: Ht 157.4 cm; Wt 77.1 kg
[2024-10-21] MEDS ORDERED: VIBRAMYCIN100 MG PO (16:54)
[2024-10-21] MEDS ORDERED: PREDNISONE20 M1 PO (16:55)
== END 2024-10-21 17:04 | disposition home or self-care (01) ==
LOC: ED 14:52
DX: J20.8 Acute bronchitis due to other specified organisms (principal); Z20.822 Contact with and (suspected) exposure to COVID-19; J44.9 Chronic obstructive pulmonary disease, unspecified; E11.22 Type 2 diabetes mellitus with diabetic chronic kidney disease; I13.0 Hypertensive heart and chronic kidney disease with heart failure and stage 1 through stage 4 chronic kidney disease, or unspecified chronic kidney disease; N18.31 Chronic kidney disease, stage 3a; I50.9 Heart failure, unspecified; E11.40 Type 2 diabetes mellitus with diabetic neuropathy, unspecified; E03.9 Hypothyroidism, unspecified; K21.9 Gastro-esophageal reflux disease without esophagitis; E78.2 Mixed hyperlipidemia; F41.9 Anxiety disorder, unspecified; F32.A Depression, unspecified; Z88.1 Allergy status to other antibiotic agents; Z88.5 Allergy status to narcotic agent; Z79.899 Other long term (current) drug therapy; Z79.84 Long term (current) use of oral hypoglycemic drugs; Z86.73 Personal history of transient ischemic attack (TIA), and cerebral infarction without residual deficits; Z90.49 Acquired absence of other specified parts of digestive tract; Z90.710 Acquired absence of both cervix and uterus; Z87.891 Personal history of nicotine dependence

== ENCOUNTER 2024-11-08 17:58 | Emergency (ER) | payer OTHER ==
[~2024-11-08] VITALS: Ht 157.4 cm; Wt 81.2 kg
[2024-11-08 18:35] LABS: BASO # 0.1 10*3/uL (0.0-0.1); BASO % 0.5 % (0.0-1.0); EOS # 0.2 10*3/uL (0.0-0.4); EOS % 1.6 % (1.0-4.0); MEAN CELL VOLUME 80.5 fl (81.0-99.0); MEAN CORPUSCULAR HGB 25.6 pg (27.0-31.0); MEAN PLATELET VOLUME 11.8 fl (9.6-12.3); MONO # 0.9 10*3/uL (0.1-1.0); MONO % 6.9 % (3.0-9.0); NEUT # 8.2 10*3/uL (2.3-7.9); NEUT % 64.8 % (47.0-73.0); NUCLEATED RED BLOOD CELL 0.0 % (0.0-0.0); NUCLEATED RED BLOOD CELL 0.0 10*3/uL (0.0-0.0); PLATELET COUNT AUTOMATED 267 10*3/uL (130-400); RED CELL DISTRI WIDTH 14.6 % (0-14.5)
[2024-11-08 18:54] LABS: BUN 15 mg/dl (9-23)
[2024-11-08 18:58] LABS: ETHYL ALCOHOL < 3.0 mg/dl (<3)
== END 2024-11-08 19:14 | disposition home or self-care (01) ==
LOC: ED 17:58
PROVIDERS: Nurse Practitioner Family
DX: S76.012A Strain of muscle, fascia and tendon of left hip, initial encounter (principal); M54.50 Low back pain, unspecified; Z88.1 Allergy status to other antibiotic agents; Z88.5 Allergy status to narcotic agent; Z79.899 Other long term (current) drug therapy; Z79.82 Long term (current) use of aspirin; Z79.84 Long term (current) use of oral hypoglycemic drugs; Z90.710 Acquired absence of both cervix and uterus; Z90.49 Acquired absence of other specified parts of digestive tract; Z87.891 Personal history of nicotine dependence; W10.8XXA Fall (on) (from) other stairs and steps, initial encounter; Y93.89 Activity, other specified; Y92.89 Other specified places as the place of occurrence of the external cause; Y99.8 Other external cause status

== ENCOUNTER 2024-11-12 13:28 | Emergency (ER) | payer OTHER ==
[~2024-11-12] VITALS: Ht 157.4 cm; Wt 77.6 kg
== END 2024-11-12 15:56 | disposition home or self-care (01) ==
LOC: ED 13:28
DX: J06.9 Acute upper respiratory infection, unspecified (principal); Z20.822 Contact with and (suspected) exposure to COVID-19; Z88.1 Allergy status to other antibiotic agents; Z88.5 Allergy status to narcotic agent; Z79.899 Other long term (current) drug therapy; Z79.84 Long term (current) use of oral hypoglycemic drugs; Z79.4 Long term (current) use of insulin; Z90.710 Acquired absence of both cervix and uterus; Z90.49 Acquired absence of other specified parts of digestive tract; Z87.891 Personal history of nicotine dependence

== ENCOUNTER 2025-01-09 10:39 | Emergency (ER) | payer OTHER ==
[~2025-01-09] VITALS: Ht 170.1 cm; Wt 83.0 kg
[2025-01-09 11:03] LABS: BASO # 0.0 10*3/uL (0.0-0.1); BASO % 0.4 % (0.0-1.0); EOS # 0.2 10*3/uL (0.0-0.4); EOS % 1.5 % (1.0-4.0); MEAN CELL VOLUME 80.2 fl (81.0-99.0); MEAN CORPUSCULAR HGB 26.1 pg (27.0-31.0); MEAN PLATELET VOLUME 11.6 fl (9.6-12.3); MONO # 0.7 10*3/uL (0.1-1.0); MONO % 6.6 % (3.0-9.0); NEUT # 7.0 10*3/uL (2.3-7.9); NEUT % 66.1 % (47.0-73.0); NUCLEATED RED BLOOD CELL 0.0 % (0.0-0.0); NUCLEATED RED BLOOD CELL 0.0 10*3/uL (0.0-0.0); PLATELET COUNT AUTOMATED 269 10*3/uL (130-400); RED CELL DISTRI WIDTH 14.8 % (0-14.5)
[2025-01-09] MEDS ORDERED: diazePAM 5 MG TAB PO ONE (11:05)
[2025-01-09 11:16] LABS: ACT PARTIAL THROMBO TIME 23.4 SECONDS (20.0-32.1)
[2025-01-09 11:26] LABS: BUN 12 mg/dl (9-23); SGPT/ALT 15 U/L (5-49)
[2025-01-09 11:28] LABS: CPK 72.0 U/L (34-171)
[2025-01-09 12:23] LABS: BILIRUBIN Negative (Negative); BLOOD Negative (Negative); CLARITY Clear (Clear); COLOR Yellow (Yellow); KETONE Trace (Negative); LEUKO ESTERASE Trace (Negative); NITRITE Negative (Negative); PH 5.0 (4.5-8.0); SPECIFIC GRAVITY 1.025 (1.001-1.030); UROBILINOGEN 1.0 E.U./dl (0.0-1.0)
[2025-01-09 12:31] LABS: BACTERIA TRACE; EPITHELIAL CELLS 16-20; MUCOUS TRACE
[2025-01-09] MEDS ORDERED: HYDROXYZINE HCL25 MG PO (12:53)
[2025-01-09] MEDS ORDERED: NYSTATIN CREAM15 GM T (12:53)
[2025-01-09] MEDS ORDERED: FLUCONAZOLE100 MG PO (12:53)
[2025-01-09] MEDS ORDERED: METHOCARBAMOL 750 MG TAB PO ONE (12:55)
== END 2025-01-09 13:22 | disposition home or self-care (01) ==
LOC: ED 10:39
PROVIDERS: Emergency Medicine
DX: F41.9 Anxiety disorder, unspecified (principal); B37.31 Acute candidiasis of vulva and vagina; E66.9 Obesity, unspecified; Z88.1 Allergy status to other antibiotic agents; Z88.5 Allergy status to narcotic agent; Z79.899 Other long term (current) drug therapy; Z79.84 Long term (current) use of oral hypoglycemic drugs; Z79.4 Long term (current) use of insulin; Z90.710 Acquired absence of both cervix and uterus; Z98.890 Other specified postprocedural states; Z90.49 Acquired absence of other specified parts of digestive tract; Z87.891 Personal history of nicotine dependence; Z68.30 Body mass index [BMI] 30.0-30.9, adult

== ENCOUNTER 2025-02-23 16:47 | Emergency (ER) | payer OTHER ==
[~2025-02-23] VITALS: Ht 157.4 cm; Wt 68.0 kg
[~2025-02-23 16:47] MED LIST changes: +FLUCONAZOLE100 MG PO; +NYSTATIN CREAM15 GM T
[2025-02-23] MEDS ORDERED: ACETAMINOPHEN 325 MG TAB PO ONE (18:50)
== END 2025-02-23 19:00 | disposition home or self-care (01) ==
LOC: ED 16:47
DX: U07.1 COVID-19 (principal); E11.9 Type 2 diabetes mellitus without complications; M19.90 Unspecified osteoarthritis, unspecified site; E66.9 Obesity, unspecified; E03.9 Hypothyroidism, unspecified; Z87.891 Personal history of nicotine dependence; Z90.710 Acquired absence of both cervix and uterus; Z90.49 Acquired absence of other specified parts of digestive tract; Z98.890 Other specified postprocedural states; Z86.73 Personal history of transient ischemic attack (TIA), and cerebral infarction without residual deficits